=== PATIENT | female | born 1950 | race Caucasian/White ===

== ENCOUNTER 2019-12-06 07:21 | Outpatient (REF) | payer MEDICARE, OTHER, SELFPAY ==
--- NOTE | 2019-12-06 | MM_ITS ---
EXAMINATION: MM SCREENING DIGITAL BREAST TOMOSYNTHESIS, BILATERAL CLINICAL INFORMATION: Screening. Asymptomatic. The lifetime risk of breast cancer based on the Tyrer-Cuzick Model is 3%. COMPARISON: Mammography: 06/09/2018, 05/27/2017, 10/23/2016 TECHNIQUE: Digital breast tomosynthesis is performed in both the craniocaudal and mediolateral oblique views along with computer-aided detection (CAD). Synthesized 2D images are generated from the tomosynthesis. FINDINGS: There are scattered areas of fibroglandular density (ACR BI-RADS breast composition Category b). Parenchymal pattern is similar to prior studies. There is no developing density or interval mass or architectural abnormality. Biopsy clip marker again noted mid 9:00 left breast. There are scattered benign round and coarse calcifications. No significant changes from prior studies. IMPRESSION: No significant changes from prior studies. ASSESSMENT: BI-RADS 2: Benign RECOMMENDATION: Routine annual mammography screening. This patient's information was entered into a reminder system with a target due date for their next mammogram.
== END 2019-12-06 07:22 | disposition home or self-care (01) ==
LOC: HO.MAMMO 07:21
PROVIDERS: Visit Provider Internal Medicine
DX: Z12.31 Encounter for screening mammogram for malignant neoplasm of breast (principal)
CPT/HCPCS: 77063; 77067

== ENCOUNTER 2020-04-25 09:16 | Outpatient (REF) | payer MEDICARE, OTHER, SELFPAY ==
--- NOTE | ~2020-04-25 | MM_ITS ---
EXAMINATION: BONE DENSITOMETRY CLINICAL INDICATION: Osteopenia. COMPARISON: Previous BD dated 06/03/2017 and baseline BD dated 12/08/2008. TECHNIQUE: Using a [employer] DXA System (software version: 13.1) manufactured by [employer], dual-energy x-ray absorptiometry was performed of the lumbar spine and left hip. The images are of good technical quality. Summary results are attached. FINDINGS: AP SPINE L1-L4: Current: BMD 1.089 g/cm2, Z-score 0.1, T-score -0.8, normal, 3.0% decrease from previous, 0.5% increase from baseline (<5% change is not significant). Prior: BMD 1.123 g/cm2. Baseline: BMD 1.084 g/cm2. LEFT FEMUR, NECK: Current: BMD 0.661 g/cm2, Z-score -1.6, T-score -2.7, osteoporosis. Prior: BMD 0.773 g/cm2. Baseline: BMD 0.876 g/cm2. LEFT FEMUR, TOTAL: Current: BMD 0.847 g/cm2, Z-score -0.4, T-score -1.3, osteopenia, 11.7% decrease from previous, 11.8% decrease from baseline (<5% change is not significant). Prior: BMD 0.959 g/cm2. Baseline: BMD 0.960 g/cm2. IDENTIFIED RISK FACTORS: Menopause, history of fracture (adult). HISTORY OF FRACTURE: Ankle. MEDICATIONS: None listed. MM/XR DEXA axial skeleton IMPRESSION: 1. DIAGNOSIS: Osteoporosis based on the lowest T-score value of -2.7 in the femoral neck applying World Health Organization criteria. 2. 10-YEAR FRACTURE RISK PREDICTION, FRAX: Major osteoporotic fracture (clinical spine, forearm, hip or shoulder) 14.6%. Hip fracture 3.8%. 3. Treatment Recommendations: NOF guidelines recommend consideration for treatment in postmenopausal women and men age 50 and older presenting with the following: -A hip or vertebral (clinical or morphometric) fracture. -T-score less than or equal to -2.5 at the femoral neck or spine after appropriate evaluation to exclude secondary causes. -Low bone mass at the hip or spine and a 10-year fracture probability by FRAX of greater than or equal to 3% for hip fracture or greater than or equal to 20% for major osteoporotic fracture based on the [place] adapted WHO algorithm. 4. Other Recommendations: All treatment decisions require clinical judgment and consideration of individual patient factors, including patient preferences, comorbidities, previous drug use, risk factors not captured in the FRAX model (e.g. frailty, falls, vitamin D deficiency, increased bone turnover, interval significant decline in bone density) and possible under or overestimation of fracture risk by FRAX. Additional medical evaluation for secondary cause of low bone mineral density may be appropriate. FUTURE SCAN RECOMMENDATION: People with diagnosed cases of osteoporosis or at high risk for fracture should have regular bone mineral density tests. For patients eligible for Medicare, routine testing is allowed once every 2 years. The testing frequency can be increased to one year for patients who have rapidly progressing disease, those who are receiving or discontinuing medical therapy to restore bone mass, or have additional risk factors.
== END 2020-04-25 09:17 | disposition home or self-care (01) ==
LOC: HO.MAMMO 09:16
PROVIDERS: Visit Provider Internal Medicine
DX: M85.80 Other specified disorders of bone density and structure, unspecified site (principal); Z78.0 Asymptomatic menopausal state
CPT/HCPCS: 77080

== ENCOUNTER 2020-07-18 10:14 | Outpatient (REF) | payer MEDICARE, OTHER, SELFPAY ==
[2020-07-18 11:50] LABS: Alanine Aminotransferase 31 U/L (0-31); Albumin Level 4.3 g/dL (3.5-5.0); Alkaline Phosphatase 96 U/L (39-117); Aspartate Amino Transferase 28 U/L (5-31); Bilirubin Direct 0.3 mg/dL (0.0-0.5); Bilirubin Total 0.8 mg/dL (0.0-1.0); Cholesterol 214 mg/dL; HDL Cholesterol 69 mg/dL; LDL Cholesterol Calculated 114 mg/dl; Total Protein 7.1 g/dL (6.5-8.0); Triglycerides 156 mg/dL
[2020-07-18 12:22] LABS: Vitamin D 25-OH Total 28.9 ng/mL (>30)
[2020-07-18 12:51] LABS: Reflex LDLD? No
== END 2020-07-18 10:15 | disposition home or self-care (01) ==
LOC: HO.LNP 10:14
PROVIDERS: Visit Provider Internal Medicine
DX: E78.00 Pure hypercholesterolemia, unspecified (principal); E55.9 Vitamin D deficiency, unspecified
CPT/HCPCS: 80061; 80076; 82306

== ENCOUNTER 2020-10-16 10:23 | Outpatient (REF) | payer MEDICARE, OTHER, SELFPAY ==
[2020-10-16 11:06] LABS: Alanine Aminotransferase 36 U/L (0-31); Albumin Level 4.4 g/dL (3.5-5.0); Alkaline Phosphatase 91 U/L (39-117); Aspartate Amino Transferase 32 U/L (5-31); Bilirubin Direct 0.3 mg/dL (0.0-0.5); Cholesterol 231 mg/dL; HDL Cholesterol 60 mg/dL; LDL Cholesterol Calculated 105 mg/dl; Total Protein 7.2 g/dL (6.5-8.0); Triglycerides 331 mg/dL
[2020-10-16 11:32] LABS: Reflex LDLD? No
== END 2020-10-16 10:24 | disposition home or self-care (01) ==
LOC: HO.LNP 10:23
PROVIDERS: Visit Provider Internal Medicine
DX: E78.00 Pure hypercholesterolemia, unspecified (principal)
CPT/HCPCS: 80061; 80076

== ENCOUNTER 2021-01-12 07:17 | Outpatient (REF) | payer MEDICARE, OTHER, SELFPAY ==
--- NOTE | ~2021-01-12 | MM_ITS ---
EXAMINATION: MM SCREENING DIGITAL BREAST TOMOSYNTHESIS, BILATERAL CLINICAL INFORMATION: Screening. Asymptomatic. The lifetime risk of breast cancer based on the Tyrer-Cuzick Model is 3%. COMPARISON: Mammography: 12/06/2019, 06/09/2018, 05/27/2017, 10/23/2016 TECHNIQUE: Digital breast tomosynthesis is performed in both the craniocaudal and mediolateral oblique views along with computer-aided detection (CAD). Synthesized 2D images are generated from the tomosynthesis. FINDINGS: There are scattered areas of fibroglandular density (ACR BI-RADS breast composition Category b). There are no significant masses, abnormal calcifications, or other abnormalities. MM/MM tomosynthesis screening BI IMPRESSION: No mammographic evidence of malignancy. ASSESSMENT: BI-RADS 1: Negative RECOMMENDATION: Routine annual mammography screening. This patient's information was entered into a reminder system with a target due date for their next mammogram.
== END 2021-01-12 07:18 | disposition home or self-care (01) ==
LOC: HO.MAMMO 07:17
PROVIDERS: PCP Internal Medicine; Visit Provider Internal Medicine
DX: Z12.31 Encounter for screening mammogram for malignant neoplasm of breast (principal)
CPT/HCPCS: 77063; 77067

== ENCOUNTER 2021-01-25 10:13 | Outpatient (REF) | payer MEDICARE, OTHER, SELFPAY ==
[2021-01-25 11:10] LABS: Alanine Aminotransferase 22 U/L (0-31); Albumin Level 4.3 g/dL (3.5-5.0); Alkaline Phosphatase 86 U/L (39-117); Aspartate Amino Transferase 21 U/L (5-31); Bilirubin Direct 0.2 mg/dL (0.0-0.5); Bilirubin Total 0.6 mg/dL (0.0-1.0); Cholesterol 240 mg/dL; HDL Cholesterol 58 mg/dL; LDL Cholesterol Calculated 137 mg/dl; Total Protein 7.3 g/dL (6.5-8.0); Triglycerides 227 mg/dL
[2021-01-25 11:39] LABS: Reflex LDLD? No
== END 2021-01-25 10:14 | disposition home or self-care (01) ==
LOC: HO.LNP 10:13
PROVIDERS: PCP Internal Medicine; Visit Provider Internal Medicine
DX: E78.00 Pure hypercholesterolemia, unspecified (principal)
CPT/HCPCS: 80061; 80076

== ENCOUNTER 2021-04-17 10:19 | Outpatient (REF) | payer MEDICARE, OTHER, SELFPAY ==
[2021-04-17 10:23] LABS: MANUAL DIFF FLAG NO
[2021-04-17 10:54] LABS: Basophils Percent Auto 0.5 % (0-2); Eosinophils Absolute Auto 0.2 X10*3/uL (0.0-0.4); Eosinophils Percent Auto 2.6 % (0-4); Hematocrit 43.1 % (37.0-47.0); Hemoglobin 13.7 g/dl (12.0-16.0); Imm Gran Abs Auto 0.02 X10*3/uL (0.00-0.03); Imm Gran Pct Auto 0.3 % (0.0-0.4); Lymphocytes Absolute Auto 1.7 X10*3/uL (1.2-4.9); Lymphocytes Percent Auto 26.8 % (20-40); Mean Corpuscular HGB Conc 31.8 g/dl (31.0-35.0); Mean Corpuscular Hemoglobin 29.7 pg (27.0-33.0); Mean Corpuscular Volume 93.5 fL (80.0-98.0); Mean Platelet Volume 9.9 fL (9.4-12.3); Monocytes Absolute Auto 0.4 X10*3/uL (0.1-1.2); Monocytes Percent Auto 6.8 % (2-11); Neutrophils Absolute Auto 3.9 x10*3/uL (2.0-8.3); Platelet Count 304 X10*3/uL (160-400); Red Blood Count 4.61 X10*6/uL (4.20-5.50); Red Cell Distribution Width 13.7 % (11.0-16.0); White Blood Count 6.2 X10*3/uL (4.8-10.8)
[2021-04-17 11:01] LABS: Appearance Urine HAZY; Color Urine YELLOW; Glucose Urine UA NEG (NEG); Leukocyte Esterase Urine 2+ (NEG); Nitrite Urine NEG (NEG); PH 5.5 (5.0-8.0); Urine Blood 1+ (NEG); Urine Ketones NEG (NEG); Urine Protein NEG (NEG-TRACE)
[2021-04-17 11:08] LABS: Alanine Aminotransferase 20 U/L (0-31); Albumin Level 4.1 g/dL (3.5-5.0); Alkaline Phosphatase 82 U/L (39-117); Anion Gap 15 (12-20); Aspartate Amino Transferase 21 U/L (5-31); Bilirubin Total 0.6 mg/dL (0.0-1.0); Blood Urea Nitrogen 15 mg/dL (9-16); Calcium 9.1 mg/dL (8.4-10.2); Carbon Dioxide 27 mmol/L (22-29); Chloride 104 mmol/L (96-108); Cholesterol 214 mg/dL; Estimated Glomerular Filt Rate > 60; Glucose Fasting 120 mg/dL (60-99); HDL Cholesterol 59 mg/dL; LDL Cholesterol Calculated 119 mg/dl; Potassium 4.1 mmol/L (3.3-5.1); Sodium 142 mmol/L (135-145); Triglycerides 182 mg/dL
[2021-04-17 11:22] LABS: RBC Urine 0-2 /HPF (0)
[2021-04-17 11:23] LABS: Bacteria Urine 1+ /LPF; Mucus Urine 1+ /LPF; Squamous Epithelial Cell Urine 2+ /LPF
[2021-04-17 11:31] LABS: Vitamin D 25-OH Total 22.7 ng/mL (>30)
== END 2021-04-17 10:20 | disposition home or self-care (01) ==
LOC: HO.LNP 10:19
PROVIDERS: PCP Internal Medicine; Visit Provider Internal Medicine
DX: E78.00 Pure hypercholesterolemia, unspecified (principal); E55.9 Vitamin D deficiency, unspecified
CPT/HCPCS: 80053; 80061; 81001; 81003; 82306; 85025

== ENCOUNTER 2021-10-26 11:18 | Outpatient (REF) | payer MEDICARE, OTHER, SELFPAY ==
[2021-10-26 11:50] LABS: Alanine Aminotransferase 16 U/L (0-31); Albumin Level 4.2 g/dL (3.5-5.0); Alkaline Phosphatase 74 U/L (39-117); Aspartate Amino Transferase 18 U/L (5-31); Bilirubin Direct 0.3 mg/dL (0.0-0.5); Bilirubin Total 0.9 mg/dL (0.0-1.0); Cholesterol 174 mg/dL; HDL Cholesterol 55 mg/dL; LDL Cholesterol Calculated 88 mg/dl; Total Protein 6.9 g/dL (6.5-8.0); Triglycerides 157 mg/dL
[2021-10-26 12:34] LABS: Reflex LDLD? No
== END 2021-10-26 11:19 | disposition home or self-care (01) ==
LOC: HO.LNP 11:18
PROVIDERS: Visit Provider Internal Medicine
DX: E78.00 Pure hypercholesterolemia, unspecified (principal)
CPT/HCPCS: 80061; 80076

== ENCOUNTER 2022-01-23 08:13 | Outpatient (REF) | payer MEDICARE, OTHER, SELFPAY ==
--- NOTE | ~2022-01-23 | MM_ITS ---
EXAMINATION: MM SCREENING DIGITAL BREAST TOMOSYNTHESIS, BILATERAL CLINICAL INFORMATION: Screening. Asymptomatic. The lifetime risk of breast cancer based on the Tyrer-Cuzick Model is 3%. COMPARISON: Mammography: 01/12/2021, 01/06/2020, 06/09/2018 TECHNIQUE: Digital breast tomosynthesis is performed in both the craniocaudal and mediolateral oblique views along with computer-aided detection (CAD). Synthesized 2D images are generated from the tomosynthesis. FINDINGS: There are scattered areas of fibroglandular density (ACR BI-RADS breast composition Category b). There are no significant masses, abnormal calcifications, or other abnormalities. Parenchymal pattern is similar to prior exams and there is no developing density or architectural abnormality. There is a biopsy clip marker again seen mid 9:00 left breast. MM/MM tomosynthesis screening BI IMPRESSION: No mammographic evidence of malignancy. ASSESSMENT: BI-RADS 1: Negative RECOMMENDATION: Routine annual mammography screening. This patient's information was entered into a reminder system with a target due date for their next mammogram.
== END 2022-01-23 08:14 | disposition home or self-care (01) ==
LOC: HO.MAMMO 08:13
PROVIDERS: PCP Internal Medicine; Visit Provider Internal Medicine
DX: Z12.31 Encounter for screening mammogram for malignant neoplasm of breast (principal)
CPT/HCPCS: 77063; 77067

== ENCOUNTER 2022-04-25 10:46 | Outpatient (REF) | payer MEDICARE, OTHER, SELFPAY ==
[2022-04-25 10:49] LABS: MANUAL DIFF FLAG NO
[2022-04-25 11:08] LABS: Basophils Percent Auto 0.6 % (0-2); Eosinophils Absolute Auto 0.1 X10*3/uL (0.0-0.4); Eosinophils Percent Auto 1.9 % (0-4); Hematocrit 44.8 % (37.0-47.0); Hemoglobin 14.4 g/dl (12.0-16.0); Imm Gran Abs Auto 0.02 X10*3/uL (0.00-0.03); Imm Gran Pct Auto 0.3 % (0.0-0.4); Lymphocytes Absolute Auto 1.5 X10*3/uL (1.2-4.9); Lymphocytes Percent Auto 24.1 % (20-40); Mean Corpuscular HGB Conc 32.1 g/dl (31.0-35.0); Mean Corpuscular Hemoglobin 30.3 pg (27.0-33.0); Mean Corpuscular Volume 94.3 fL (80.0-98.0); Mean Platelet Volume 9.8 fL (9.4-12.3); Monocytes Absolute Auto 0.5 X10*3/uL (0.1-1.2); Monocytes Percent Auto 7.2 % (2-11); Neutrophils Absolute Auto 4.1 x10*3/uL (2.0-8.3); Neutrophils Percent Auto 65.9 % (45-73); Platelet Count 336 X10*3/uL (160-400); Red Blood Count 4.75 X10*6/uL (4.20-5.50); Red Cell Distribution Width 13.3 % (11.0-16.0); White Blood Count 6.2 X10*3/uL (4.8-10.8)
[2022-04-25 11:16] LABS: Appearance Urine Cloudy; Color Urine Yellow; Glucose Urine UA Negative (Negative); Leukocyte Esterase Urine Large (3+) (Negative); Nitrite Urine Negative (Negative); Specific Gravity - Urine 1.015 (1.005-1.025); UMIC TRIGGER UACC YES; Urine Blood Small (1+) (Negative); Urine Ketones Negative (Negative); Urine Protein Negative (Neg-Trace)
[2022-04-25 11:27] LABS: Bacteria Urine 1+ (None Seen); Hyaline Casts Urine 0-2 /LPF (0-2); Squamous Epithelial Cell Urine >20 /HPF (0-2); UACC Culture Trigger YES; WBC Urine >50 /HPF (0-5)
[2022-04-25 11:36] LABS: Alanine Aminotransferase 17 U/L (0-31); Albumin Level 4.1 g/dL (3.5-5.0); Alkaline Phosphatase 74 U/L (39-117); Anion Gap 14 (12-20); Aspartate Amino Transferase 19 U/L (5-31); Blood Urea Nitrogen 10 mg/dL (9-16); Calcium 8.9 mg/dL (8.4-10.2); Carbon Dioxide 28 mmol/L (22-29); Chloride 104 mmol/L (96-108); Cholesterol 281 mg/dL; Estimated Glomerular Filt Rate > 60; Glucose Fasting 102 mg/dL (60-99); HDL Cholesterol 62 mg/dL; LDL Cholesterol Calculated 195 mg/dl; Potassium 3.6 mmol/L (3.3-5.1); Sodium 142 mmol/L (135-145); Total Protein 6.8 g/dL (6.5-8.0); Triglycerides 120 mg/dL
[2022-04-25 11:41] LABS: Vitamin D 25-OH Total 32.2 ng/mL (>30)
== END 2022-04-25 10:47 | disposition home or self-care (01) ==
LOC: HO.LNP 10:46
PROVIDERS: Visit Provider Internal Medicine
DX: E78.00 Pure hypercholesterolemia, unspecified (principal); E55.9 Vitamin D deficiency, unspecified; R82.90 Unspecified abnormal findings in urine
CPT/HCPCS: 80053; 80061; 81001; 81003; 82306; 85025; 87086

== ENCOUNTER 2022-04-30 11:20 | Outpatient (REF) | payer MEDICARE, OTHER, SELFPAY ==
[2022-04-30 11:54] LABS: Appearance Urine Cloudy; Color Urine Yellow; Glucose Urine UA Negative (Negative); Leukocyte Esterase Urine Moderate (2+) (Negative); Nitrite Urine Negative (Negative); PH 5.5 (5.0-9.0); UMIC TRIGGER UACC YES; Urine Blood Small (1+) (Negative); Urine Ketones Negative (Negative); Urine Protein Negative (Neg-Trace)
[2022-04-30 12:10] LABS: Bacteria Urine Trace (None Seen); Hyaline Casts Urine 0-2 /LPF (0-2); UACC Culture Trigger YES
== END 2022-04-30 11:21 | disposition home or self-care (01) ==
LOC: HO.LNP 11:20
PROVIDERS: Visit Provider Internal Medicine
DX: N30.01 Acute cystitis with hematuria (principal)
CPT/HCPCS: 81001; 87086

== ENCOUNTER 2022-05-28 12:33 | Outpatient (REF) | payer MEDICARE, OTHER, SELFPAY ==
[2022-05-28 13:54] LABS: Appearance Urine Cloudy; Color Urine Yellow; Glucose Urine UA Negative (Negative); Leukocyte Esterase Urine Large (3+) (Negative); Nitrite Urine Negative (Negative); Specific Gravity - Urine 1.015 (1.005-1.025); UMIC TRIGGER UA YES; Urine Blood Small (1+) (Negative); Urine Ketones Negative (Negative); Urine Protein Negative (Neg-Trace)
[2022-05-28 14:34] LABS: Bacteria Urine 1+ (None Seen); Hyaline Casts Urine 0-2 /LPF (0-2); RBC Urine 0-2 /HPF (0-2); WBC Urine 21-50 /HPF (0-5)
== END 2022-05-28 12:34 | disposition home or self-care (01) ==
LOC: HO.LNP 12:33
PROVIDERS: Visit Provider Internal Medicine
DX: N30.01 Acute cystitis with hematuria (principal)
CPT/HCPCS: 81001

== ENCOUNTER 2022-07-01 10:46 | Outpatient (REF) | payer MEDICARE, OTHER, SELFPAY ==
[2022-07-01 11:06] LABS: Appearance Urine Cloudy; Color Urine Yellow; Glucose Urine UA Negative (Negative); Leukocyte Esterase Urine Large (3+) (Negative); Nitrite Urine Negative (Negative); PH 5.5 (5.0-9.0); Specific Gravity - Urine 1.015 (1.005-1.025); UMIC TRIGGER UACC YES; Urine Blood Small (1+) (Negative); Urine Ketones Negative (Negative); Urine Protein Negative (Neg-Trace)
[2022-07-01 11:32] LABS: Bacteria Urine 1+ (None Seen); Hyaline Casts Urine 0-2 /LPF (0-2); RBC Urine 0-2 /HPF (0-2); Squamous Epithelial Cell Urine >20 /HPF (0-2); UACC Culture Trigger YES; WBC Urine 21-50 /HPF (0-5)
== END 2022-07-01 10:47 | disposition home or self-care (01) ==
LOC: HO.LNP 10:46
PROVIDERS: Visit Provider Internal Medicine
DX: R31.9 Hematuria, unspecified (principal)
CPT/HCPCS: 81001; 87086

== ENCOUNTER 2022-08-16 11:40 | Outpatient (REF) | payer MEDICARE, OTHER, SELFPAY ==
[2022-08-16 12:09] LABS: Appearance Urine Clear; Color Urine Yellow; Glucose Urine UA Negative (Negative); Leukocyte Esterase Urine Moderate (2+) (Negative); Nitrite Urine Negative (Negative); PH 6.5 (5.0-9.0); Specific Gravity - Urine 1.015 (1.005-1.025); UMIC TRIGGER UACC YES; Urine Blood Trace (Negative); Urine Ketones Negative (Negative); Urine Protein Negative (Neg-Trace)
[2022-08-16 12:28] LABS: Bacteria Urine None Seen (None Seen); Hyaline Casts Urine 0-2 /LPF (0-2); WBC Urine 0-5 /HPF (0-5)
== END 2022-08-16 11:41 | disposition home or self-care (01) ==
LOC: HO.LNP 11:40
PROVIDERS: Visit Provider Internal Medicine
DX: R82.90 Unspecified abnormal findings in urine (principal); Z51.89 Encounter for other specified aftercare
CPT/HCPCS: 81001

== ENCOUNTER 2022-09-05 11:49 | Outpatient (REF) | payer MEDICARE, OTHER, SELFPAY ==
[2022-09-05 13:04] LABS: Appearance Urine Clear; Color Urine Yellow; Glucose Urine UA Negative (Negative); Leukocyte Esterase Urine Negative (Negative); Nitrite Urine Negative (Negative); UMIC TRIGGER UACC YES; Urine Blood Trace (Negative); Urine Ketones Negative (Negative); Urine Protein Negative (Neg-Trace)
[2022-09-05 13:10] LABS: Bacteria Urine None Seen (None Seen); Hyaline Casts Urine 0-2 /LPF (0-2); RBC Urine 0-2 /HPF (0-2); Squamous Epithelial Cell Urine 0-2 /HPF (0-2); WBC Urine 0-5 /HPF (0-5)
== END 2022-09-05 11:50 | disposition home or self-care (01) ==
LOC: HO.LNP 11:49
PROVIDERS: Visit Provider Internal Medicine
DX: R31.9 Hematuria, unspecified (principal)
CPT/HCPCS: 81001

== ENCOUNTER 2022-10-16 12:48 | Outpatient (REF) | payer MEDICARE, OTHER, SELFPAY ==
[2022-10-16 17:11] LABS: Urine Cytology See Pathology rpt
== END 2022-10-16 12:49 | disposition home or self-care (01) ==
LOC: HO.LNP 12:48
PROVIDERS: PCP Internal Medicine; Visit Provider Nurse Practitioner Family
DX: Z13.9 Encounter for screening, unspecified (principal); R31.29 Other microscopic hematuria
CPT/HCPCS: 81003; 88112; 99202

== ENCOUNTER 2022-10-16 12:48 | Outpatient (AMB) | payer MEDICARE, OTHER, SELFPAY ==
--- NOTE | 2022-10-16 13:06 | MHC.OFFVIS ---
Intake Intake Visit Reasons: Hematuria Intake Note: New Patient presents for initial visit hematuria Urology Medications: none Blood Thinner: none Smoker: No, smoked for 30-40yrs Behavior Specialist Required: No Allergies No Known Allergies Allergy (Verified 10/16/22 21:52) Medication List - Last Reconciled 10/16/22 by ABIDA Grace atorvastatin 20 mg PO DAILY HPI HPI Comments History of Present Illness Details Christina Scott is a 71-year-old female patient of Dr. Diane. She has a past medical history of abnormal mammogram, age related osteoporosis, bladder polyp with negative cystoscopy in 2018, De Quervains syndrome, fibrocystic disease of the left breast, hypercholesteremia, and vitamin-D deficiency. She presents to the office today as a new patient for longstanding ongoing history of microscopic hematuria. In discussion with the patient today she reports to be doing and feeling well. She reports following up with Urology for many years as she has had microscopic hematuria for many years now. She reports following up with Dr. Das and Dr. Corley in the past. She discusses having had imaging and in office cystoscopies in the past all that have been within normal limits. She discusses her frustration regarding today's appointment as she feels follow-up is not necessary if workup has been completed in the past and everything has been normal. Discussed at length potential causes for microscopic hematuria. Patient does report a smoking history however quit approximately 30 years ago. However when she did smoke she smoked for approximately 20 years. When asked she is unsure of how many cigarettes or packs of cigarettes she used to smoke. She discusses it varied day to day. Discussed further microscopic hematuria workup with CT urogram as well as in office cystoscopy and urine cytology. However, patient does not wish to have imaging or further workup at this time. She otherwise denies urinary urgency, urinary frequency, incontinence, nocturia, hematuria, dysuria, foul smelling urine, changes to urinary stream, flank pain, fever, and or chills. She is happy with her current voiding parameters. In office urinalysis results reviewed with the patient today. [facility] Medical History Abnormal mammogram Abnormal mammogram of left breast Age related osteoporosis Bladder polyp De Quervain's syndrome (tenosynovitis) Fibrocystic disease of left breast High cholesterol Osteopenia determined by x-ray Other specified menopausal and perimenopausal disorders Vitamin D deficiency Review of Systems Const Reports as per HPI Eyes Reports no additional complaints ENT Reports no additional complaints Card Reports as per HPI Resp Reports no additional complaints GI Reports no additional complaints Reports as per HPI Musc Reports as per HPI Skin/Breast Reports as per HPI Neuro Reports no additional complaints Psych Reports no additional complaints Endo Reports no additional complaints Donald/Lymph Reports no additional complaints Aller/Immun Reports no additional complaints Physical Exam Const General: cooperative, healthy appearing, comfortable, no acute distress, well developed, alert and awake Orientation/consciousness: patient oriented x3 Limitations: no limitations HEENT Head: Yes normal to inspection, Yes normocephalic and Yes atraumatic Ears: hearing grossly normal bilaterally Eyes General: appearance normal, both eyes and all related structures Neck Neck: Yes normal visual inspection and Yes trachea midline Chest Chest palpation & inspection: normal inspection of the chest Resp Effort & Inspection: normal respiratory effort and able to speak in complete sentences Cardio Rate: regular rate GI Inspection: Yes normal to inspection General: Yes no CVA tenderness Back/Spine/Pelvis Back: no CVA tenderness Skin General skin exam: no rashes or lesions noted Neuro General: patient oriented x3 Extrem General: Yes normal to inspection Psych Appearance: grossly normal and well kempt Mental Status: mental status grossly normal Speech and movement: Normal speech and movement present and Clear speech present Affect: normal affect Attitude: cooperative Thought process: Normal thought process present Thought content: Normal thought content present Insight: Fair insight present (Psych) Judgement: Fair judgement present (Psych) Results AMB Urinalysis, Automated UA Leukoctes 15 Serjio/uL Last Edit by Xdyniaronal on 10/16/22 13:43 UA Nitrite Negative Last Edit by [employer] on 10/16/22 13:43 UA Urobilinogen 0.2 mg/dL Last Edit by [employer] on 10/16/22 13:43 UA Protein 0 mg/dL Last Edit by [employer] on 10/16/22 13:43 UA pH 6.0 Last Edit by [employer] on 10/16/22 13:43 UA Blood 25 Isaias/uL Last Edit by [employer] on 10/16/22 13:43 UA Specific Mica 1.015 Last Edit by Bereket Bellamy on 10/16/22 13:43 UA Ketone Negative Last Edit by Bereket Bellamy on 10/16/22 13:43 UA Bilirubin 0 mg/dL Last Edit by Bereket Francoronal on 10/16/22 13:43 UA Glucose 0 mg/dL Last Edit by Bereket Francoronal on 10/16/22 13:43 Results Reviewed Results Reviewed: Laboratory Last Values Urine pH (Auto) 6.0 10/16/22 13:12 Specific Mica (Auto) 1.015 10/16/22 13:12 Urine Protein (Auto) 0 mg/dL 10/16/22 13:12 Glucose (UA)(Auto) 0 mg/dL 10/16/22 13:12 Urine Ketones (Auto) Negative 10/16/22 13:12 Urine Blood (Auto) 25 Isaias/uL 10/16/22 13:12 Urine Nitrite (Auto) Negative 10/16/22 13:12 Urine Bilirubin (Auto) 0 mg/dL 10/16/22 13:12 Urine Urobilinogen (Auto) 0.2 mg/dL 10/16/22 13:12 Leukocyte Esterase (Auto) 15 Serjio/uL 10/16/22 13:12 Assessment & Plan Assessment & Plan (1) Microscopic hematuria: Code(s): R31.29 - Other microscopic hematuria Plan In office urinalysis results reviewed with the patient today; as noted above; will send for urine cytology. Discussed at length potential causes for microscopic hematuria as well as further microscopic hematuria workup Patient declines obtaining imaging and in office cystoscopy for further assessment evaluation. Patient denies any bothersome urinary issues or concerns at this time. Discussed and educated on the importance of drinking plenty of water daily. Patient agreeable to surveillance monitoring of urine cytologies. Follow-up in 1 year; or sooner with any issues, concerns, and or questions. Orders: Orders Urine Cytology Today Z13.9 - Encounter for screening, unspecified AMB Urinalysis Automated Today Z13.9 - Encounter for screening, unspecified Patient Instructions: The patient had an opportunity to ask questions regarding the treatment plan. All questions were answered. Physical exam, labs, and imaging were discussed and reviewed in detail. As well as risks, benefits, and discussion of treatment choices. No major barriers to understanding were identified. The patient expressed understanding and agreement with the above treatment plan. The patient was made aware they should contact our office by phone for worsening of their current condition, the appearance of new symptoms, or with any questions or concerns. Compliance is encouraged with any medications and follow up testing that is ordered. It is a privilege to be allowed the opportunity to participate in? your urological care.? Again, if you have any questions or concerns If you have any questions or concerns please do not hesitate to contact me. The office is [phone]. This note is constructed using voice recognition software. While every effort has been made to ensure accuracy drilling supervisor errors may have been included. Yours sincerely, ABIDA Grace Coding Level of Care Code New Pt Level 3 (60198) Diagnoses Microscopic hematuria R31.29
== END 2022-10-16 13:55 | disposition home or self-care (01) ==
PROVIDERS: PCP Internal Medicine; Visit Provider Nurse Practitioner Family
DX: R31.29 Other microscopic hematuria (principal)
CPT/HCPCS: 99203

== ENCOUNTER 2022-11-01 10:42 | Outpatient (REF) | payer MEDICARE, OTHER, SELFPAY ==
[2022-11-01 11:30] LABS: Cholesterol 172 mg/dL (<200); HDL Cholesterol 66 mg/dL (>40); LDL Cholesterol Calculated 83 mg/dL (<100); Triglycerides 119 mg/dL (<150)
[2022-11-01 11:31] LABS: Alanine Aminotransferase 20 U/L (0-31); Albumin Level 4.1 g/dL (3.5-5.0); Alkaline Phosphatase 79 U/L (39-117); Aspartate Amino Transferase 23 U/L (5-31); Bilirubin Direct 0.3 mg/dL (0.0-0.5); Bilirubin Total 0.8 mg/dL (0.0-1.0); Total Protein 7.1 g/dL (6.5-8.0)
[2022-11-01 12:40] LABS: Reflex LDLD? No
== END 2022-11-01 10:43 | disposition home or self-care (01) ==
LOC: HO.LNP 10:42
PROVIDERS: Visit Provider Internal Medicine
DX: E78.00 Pure hypercholesterolemia, unspecified (principal)
CPT/HCPCS: 80061; 80076

== ENCOUNTER 2023-01-24 08:32 | Outpatient (REF) | payer MEDICARE, OTHER, SELFPAY ==
--- NOTE | ~2023-01-24 | MM_ITS ---
EXAMINATION: MM SCREENING DIGITAL BREAST TOMOSYNTHESIS, BILATERAL CLINICAL INFORMATION: Screening. Asymptomatic. COMPARISON: Mammography: This study is compared with prior exams dating back to 2018. TECHNIQUE: Digital breast tomosynthesis is performed in both the craniocaudal and mediolateral oblique views along with computer-aided detection (CAD). Synthesized 2D images are generated from the tomosynthesis. FINDINGS: There are scattered areas of fibroglandular density (ACR BI-RADS breast composition Category b). There are no significant masses, abnormal calcifications, or other abnormalities. There is a tissue marker in the left breast from prior benign percutaneous biopsy. There are a few, coarse, bilateral, benign calcifications in each breast. MM/MM tomosynthesis screening BI IMPRESSION: No mammographic evidence of malignancy. ASSESSMENT: BI-RADS BI-RADS 2 - Benign Findings RECOMMENDATION: Routine annual mammography screening. 1 year F/U This examination should not preclude the clinical evaluation of a suspicious palpable abnormality. This patient's information was entered into a reminder system with a target due date for their next mammogram.
--- NOTE | ~2023-01-24 | MM_ITS ---
EXAMINATION: BONE DENSITOMETRY CLINICAL INDICATION: Osteopenia. COMPARISON: Previous BD dated 04/25/2020 and baseline BD dated 12/08/2008. TECHNIQUE: Using a [employer] DXA System (software version: 13.1) manufactured by [employer], dual-energy x-ray absorptiometry was performed of the lumbar spine and left hip. The images are of good technical quality. Summary results are attached. FINDINGS: LEFT FEMUR, NECK: Current: BMD 0.814 g/cm2, Z-score -0.2, T-score -1.6, osteopenia. Prior: BMD 0.661 g/cm2. Baseline: BMD 0.876 g/cm2. LEFT FEMUR, TOTAL: Current: BMD 0.934 g/cm2, Z-score 0.6, T-score -0.6, normal, 10.3% increase from previous, 2.7% decrease from baseline (<5% change is not significant). Prior: BMD 0.847 g/cm2. Baseline: BMD 0.960 g/cm2. AP SPINE L1-L4: Current: BMD 1.091 g/cm2, Z-score 0.5, T-score -0.7, normal, 0.2% increase from previous, 0.6% increase from baseline (<5% change is not significant). Prior: BMD 1.089 g/cm2. Baseline: BMD 1.084 g/cm2. IDENTIFIED RISK FACTORS: Menopause, history of fracture (adult). HISTORY OF FRACTURE: Other. MEDICATIONS: Calcium, vitamin D. MM/XR DEXA axial skeleton IMPRESSION: 1. DIAGNOSIS: Osteopenia based on the lowest T-score value of -1.6 in the femoral neck applying World Health Organization criteria. 2. 10-YEAR FRACTURE RISK PREDICTION, FRAX: Major osteoporotic fracture (clinical spine, forearm, hip or shoulder) 15.9%. Hip fracture 2.5%. 3. Treatment Recommendations: NOF guidelines recommend consideration for treatment in postmenopausal women and men age 50 and older presenting with the following: -A hip or vertebral (clinical or morphometric) fracture. -T-score less than or equal to -2.5 at the femoral neck or spine after appropriate evaluation to exclude secondary causes. -Low bone mass at the hip or spine and a 10-year fracture probability by FRAX of greater than or equal to 3% for hip fracture or greater than or equal to 20% for major osteoporotic fracture based on the [place] adapted WHO algorithm. 4. Other Recommendations: All treatment decisions require clinical judgment and consideration of individual patient factors, including patient preferences, comorbidities, previous drug use, risk factors not captured in the FRAX model (e.g. frailty, falls, vitamin D deficiency, increased bone turnover, interval significant decline in bone density) and possible under or overestimation of fracture risk by FRAX. Additional medical evaluation for secondary cause of low bone mineral density may be appropriate. FUTURE SCAN RECOMMENDATION: People with diagnosed cases of osteoporosis or at high risk for fracture should have regular bone mineral density tests. For patients eligible for Medicare, routine testing is allowed once every 2 years. The testing frequency can be increased to one year for patients who have rapidly progressing disease, those who are receiving or discontinuing medical therapy to restore bone mass, or have additional risk factors.
== END 2023-01-24 08:33 | disposition home or self-care (01) ==
LOC: HO.MAMMO 08:32
PROVIDERS: PCP Internal Medicine; Visit Provider Internal Medicine
DX: Z12.31 Encounter for screening mammogram for malignant neoplasm of breast (principal); Z13.820 Encounter for screening for osteoporosis; M85.80 Other specified disorders of bone density and structure, unspecified site; Z78.0 Asymptomatic menopausal state
CPT/HCPCS: 77063; 77067; 77080

== ENCOUNTER → 2023-01-24 10:15 | Outpatient (BNV) | payer MEDICARE, OTHER, SELFPAY | PROVIDERS: PCP Internal Medicine; Visit Provider Radiology Diagnostic Radiology | DX: Z12.31 Encounter for screening mammogram for malignant neoplasm of breast (principal) | CPT/HCPCS: 77063; 77067 ==

== ENCOUNTER 2023-04-28 11:16 | Outpatient (REF) | payer MEDICARE, OTHER, SELFPAY ==
[2023-04-28 11:19] LABS: MANUAL DIFF FLAG NO
[2023-04-28 11:41] LABS: Basophils Percent Auto 0.6 % (0-2); Eosinophils Absolute Auto 0.2 X10*3/uL (0.0-0.4); Eosinophils Percent Auto 2.4 % (0-4); Hematocrit 42.4 % (37.0-47.0); Hemoglobin 13.8 g/dl (12.0-16.0); Imm Gran Abs Auto 0.02 X10*3/uL (0.00-0.03); Imm Gran Pct Auto 0.3 % (0.0-0.4); Lymphocytes Absolute Auto 1.3 X10*3/uL (1.2-4.9); Lymphocytes Percent Auto 21.5 % (20-40); Mean Corpuscular HGB Conc 32.5 g/dl (31.0-35.0); Mean Corpuscular Hemoglobin 30.1 pg (27.0-33.0); Mean Corpuscular Volume 92.4 fL (80.0-98.0); Mean Platelet Volume 9.5 fL (9.4-12.3); Monocytes Absolute Auto 0.5 X10*3/uL (0.1-1.2); Monocytes Percent Auto 7.9 % (2-11); Neutrophils Absolute Auto 4.2 x10*3/uL (2.0-8.3); Neutrophils Percent Auto 67.3 % (45-73); Platelet Count 315 X10*3/uL (160-400); Red Blood Count 4.59 X10*6/uL (4.20-5.50); Red Cell Distribution Width 13.7 % (11.0-16.0); White Blood Count 6.2 X10*3/uL (4.8-10.8)
[2023-04-28 11:59] LABS: Alanine Aminotransferase 18 U/L (0-31); Alkaline Phosphatase 73 U/L (39-117); Anion Gap 14 (12-20); Aspartate Amino Transferase 22 U/L (5-31); Bilirubin Total 0.6 mg/dL (0.0-1.0); Blood Urea Nitrogen 13 mg/dL (9-16); Calcium 9.1 mg/dL (8.4-10.2); Carbon Dioxide 27 mmol/L (22-29); Chloride 106 mmol/L (96-108); Cholesterol 171 mg/dL (<200); Estimated Glomerular Filt Rate > 60; Glucose Fasting 101 mg/dL (60-99); HDL Cholesterol 68 mg/dL (>40); LDL Cholesterol Calculated 89 mg/dL (<100); Potassium 3.8 mmol/L (3.3-5.1); Sodium 143 mmol/L (135-145); Total Protein 7.1 g/dL (6.5-8.0); Triglycerides 72 mg/dL (<150)
[2023-04-28 12:14] LABS: Vitamin D 25-OH Total 47.7 ng/mL (>30)
== END 2023-04-28 11:17 | disposition home or self-care (01) ==
LOC: HO.LNP 11:16
PROVIDERS: Visit Provider Internal Medicine
DX: E78.00 Pure hypercholesterolemia, unspecified (principal); E55.9 Vitamin D deficiency, unspecified
CPT/HCPCS: 80053; 80061; 82306; 85025

== ENCOUNTER 2023-05-02 11:51 | Outpatient (REF) | payer MEDICARE, OTHER, SELFPAY ==
[2023-05-02 12:29] LABS: Appearance Urine Clear; Color Urine Yellow; Glucose Urine UA Negative (Negative); Leukocyte Esterase Urine Trace (Negative); Nitrite Urine Negative (Negative); UMIC TRIGGER UACC YES; Urine Blood Negative (Negative); Urine Ketones Negative (Negative); Urine Protein Negative (Neg-Trace)
[2023-05-02 12:35] LABS: Bacteria Urine None Seen (None Seen); Hyaline Casts Urine 0-2 /LPF (0-2); RBC Urine 0-2 /HPF (0-2); Squamous Epithelial Cell Urine 0-2 /HPF (0-2); WBC Urine 0-5 /HPF (0-5)
== END 2023-05-02 11:52 | disposition home or self-care (01) ==
LOC: HO.LNP 11:51
PROVIDERS: Visit Provider Internal Medicine
DX: E78.00 Pure hypercholesterolemia, unspecified (principal); M85.80 Other specified disorders of bone density and structure, unspecified site; E55.9 Vitamin D deficiency, unspecified
CPT/HCPCS: 81001

== ENCOUNTER 2023-10-17 09:14 | Outpatient (AMB) | payer MEDICARE, OTHER, SELFPAY ==
--- NOTE | 2023-10-17 09:25 | A.OFFVIS_ITS ---
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 Diane. She has a past medical history of abnormal mammogram, age related osteoporosis, bladder polyp with negative cystoscopy in 2018, De Quervains syndrome, fibrocystic disease of the left breast, hypercholesteremia, and vitamin-D deficiency. She presents to the office today for follow-up of her microscopic hematuria. In discussion with the patient today with the patient today she reports to be doing and feeling since her last office visit here one year ago. She denies any bothersome urinary issues or concerns. Previous urine cytology results reviewed with the patient today 10/16 Negative for high-grade urothelial carcinoma. She discusses her longstanding history of microscopic hematuria for many years now and her previous history with workups that all have been within normal limits. She reports having had workups in the past as she previously smoked however has been smoke free for over 30 years now. We discussed reasons for blood in the urine may include but are not limited to kidney stones, cancer in the urinary tract, kidney stone disease or inflammatory conditions of the urinary tract. I have discussed workup to include cystoscopy evaluation. However, patient does not wish to have imaging or further workup at this time. She otherwise denies urinary urgency, urinary frequency, incontinence, nocturia, hematuria, dysuria, foul smelling urine, changes to urinary stream, flank pain, fever, and or chills. She is happy with her current voiding parameters. In office urinalysis results reviewed with the patient today. [facility] Medical History Bladder polyp Abnormal mammogram of left breast Abnormal mammogram Fibrocystic disease of left breast Age related osteoporosis Osteopenia determined by x-ray High cholesterol De Quervain's syndrome (tenosynovitis) Other specified menopausal and perimenopausal disorders Vitamin D deficiency Review of Systems Const Reports as per HPI Eyes Reports no additional complaints ENT Reports no additional complaints Card Reports as per HPI Resp Reports no additional complaints GI Reports no additional complaints Reports as per HPI Musc Reports as per HPI Skin/Breast Reports as per HPI Neuro Reports no additional complaints Psych Reports no additional complaints Endo Reports no additional complaints Donald/Lymph Reports no additional complaints Aller/Immun Reports no additional complaints Physical Exam Const General: cooperative, healthy appearing, comfortable, no acute distress, well developed, alert and awake Orientation/consciousness: patient oriented x3 Limitations: no limitations HEENT Head: Yes normal to inspection, Yes normocephalic and Yes atraumatic Ears: hearing grossly normal bilaterally Eyes General: appearance normal, both eyes and all related structures Neck Neck: Yes normal visual inspection and Yes trachea midline Chest Chest palpation & inspection: normal inspection of the chest Resp Effort & Inspection: normal respiratory effort and able to speak in complete sentences Cardio Rate: regular rate GI Inspection: Yes normal to inspection General: Yes no CVA tenderness Back/Spine/Pelvis Back: no CVA tenderness Skin General skin exam: no rashes or lesions noted Neuro General: patient oriented x3 Extrem General: Yes normal to inspection Psych Appearance: grossly normal and well kempt Mental Status: mental status grossly normal Speech and movement: Normal speech and movement present and Clear speech present Affect: normal affect Attitude: cooperative Thought process: Normal thought process present Thought content: Normal thought content present Insight: Fair insight present (Psych) Judgement: Fair judgement present (Psych) Results AMB Urinalysis, Automated UA Leukoctes 125 Serjio/uL Last Edit by [employer] on 10/17/23 09:39 UA Nitrite Last Edit by [employer] on 10/17/23 09:39 UA Urobilinogen 0.2 mg/dL Last Edit by [employer] on 10/17/23 09:39 UA Protein 0 mg/dL Last Edit by [employer] on 10/17/23 09:39 UA pH 6.0 Last Edit by [employer] on 10/17/23 09:39 UA Blood 80 Isaias/uL Last Edit by [employer] on 10/17/23 09:39 UA Specific [place] 1.020 Last Edit by [employer] on 10/17/23 09:39 UA Ketone Negative Last Edit by [employer] on 10/17/23 09:39 UA Bilirubin 0 mg/dL Last Edit by [employer] on 10/17/23 09:39 UA Glucose 0 mg/dL Last Edit by Bereket Bellamy on 10/17/23 09:39 Results Reviewed Results Reviewed: Laboratory Last Values Urine pH (Auto) 6.0 10/17/23 09:32 Specific [place] (Auto) 1.020 10/17/23 09:32 Urine Protein (Auto) 0 mg/dL 10/17/23 09:32 Glucose (UA)(Auto) 0 mg/dL 10/17/23 09:32 Urine Ketones (Auto) Negative 10/17/23 09:32 Urine Blood (Auto) 80 Isaias/uL 10/17/23 09:32 Urine Bilirubin (Auto) 0 mg/dL 10/17/23 09:32 Urine Urobilinogen (Auto) 0.2 mg/dL 10/17/23 09:32 Leukocyte Esterase (Auto) 125 Serjio/uL 10/17/23 09:32 Assessment & Plan Assessment & Plan (1) Microscopic hematuria: Code(s): R31.29 - Other microscopic hematuria Category: Medical Plan In office urinalysis results reviewed with the patient today; as noted above; will send for urine cytology. Discussed at length potential causes for microscopic hematuria as well as further microscopic hematuria workup Patient declines obtaining imaging and in office cystoscopy for further assessment evaluation. Patient denies any bothersome urinary issues or concerns at this time. Discussed and educated on the importance of drinking plenty of water daily. Prescription provided for Estrace cream Patient agreeable to surveillance monitoring of urine cytologies. Follow-up in 1 year; or sooner with any issues, concerns, and or questions. Orders: Orders AMB Urinalysis Automated Today Z13.9 - Encounter for screening, unspecified Urine Cytology Today R31.29 - Other microscopic hematuria Medications: New estradiol 0.01%(0.1mg/gram) (Estrace) Apply pea sized amount to urethra 3 times per week 1 g vaginal 3XW 90 days 42.5 grams 3RF Patient Instructions: The patient had an opportunity to ask questions regarding the treatment plan. All questions were answered. Physical exam, labs, and imaging were discussed and reviewed in detail. As well as risks, benefits, and discussion of treatment choices. No major barriers to understanding were identified. The patient expressed understanding and agreement with the above treatment plan. The patient was made aware they should contact our office by phone for worsening of their current condition, the appearance of new symptoms, or with any questions or concerns. Compliance is encouraged with any medications and follow up testing that is ordered. It is a privilege to be allowed the opportunity to participate in? your urological care.? Again, if you have any questions or concerns If you have any questions or concerns please do not hesitate to contact me. The office is [phone]. This note is constructed using voice recognition software. While every effort has been made to ensure accuracy aluminum boat inspector errors may have been included. Yours sincerely, ABIDA Grace Coding Level of Care Code Est Pt Level 3 (49943) Complex EM visit Add On G2211 Diagnoses Microscopic hematuria R31.29
== END 2023-10-17 10:06 | disposition home or self-care (01) ==
PROVIDERS: PCP Internal Medicine; Visit Provider Nurse Practitioner Family
DX: Z13.9 Encounter for screening, unspecified (principal); R31.29 Other microscopic hematuria
CPT/HCPCS: 99213; G2211

== ENCOUNTER 2023-10-17 09:14 | Outpatient (REF) | payer MEDICARE, OTHER, SELFPAY ==
[2023-10-17 17:24] LABS: Urine Cytology See Pathology rpt
== END 2023-10-17 09:15 | disposition home or self-care (01) ==
LOC: HO.LNP 09:14
PROVIDERS: PCP Internal Medicine; Visit Provider Nurse Practitioner Family
DX: R31.29 Other microscopic hematuria (principal)
CPT/HCPCS: 81003; 88112; 99212

== ENCOUNTER 2023-11-11 11:23 | Outpatient (REF) | payer MEDICARE, OTHER, SELFPAY ==
[2023-11-11 11:47] LABS: Alanine Aminotransferase 18 U/L (0-31); Alkaline Phosphatase 69 U/L (39-117); Aspartate Amino Transferase 21 U/L (5-31); Bilirubin Direct 0.3 mg/dL (0.0-0.5); Bilirubin Total 0.8 mg/dL (0.0-1.0); Cholesterol 168 mg/dL (<200); HDL Cholesterol 73 mg/dL (>40); LDL Cholesterol Calculated 72 mg/dL (<100); Total Protein 6.8 g/dL (6.5-8.0); Triglycerides 118 mg/dL (<150)
[2023-11-11 14:27] LABS: Reflex LDLD? No
== END 2023-11-11 11:24 | disposition home or self-care (01) ==
LOC: HO.LNP 11:23
PROVIDERS: Visit Provider Internal Medicine
DX: E78.00 Pure hypercholesterolemia, unspecified (principal)
CPT/HCPCS: 80061; 80076

== ENCOUNTER 2024-01-26 08:33 | Outpatient (REF) | payer MEDICARE, OTHER, SELFPAY ==
--- NOTE | ~2024-01-26 | MM_ITS ---
EXAMINATION: MM SCREENING DIGITAL BREAST TOMOSYNTHESIS, BILATERAL CLINICAL INFORMATION: Screening. Asymptomatic. COMPARISON: Mammography: Comparison is made with available priors TECHNIQUE: Digital breast mammography with tomosynthesis is performed in both the craniocaudal and mediolateral oblique views along with computer-aided detection (CAD). FINDINGS: There are scattered areas of fibroglandular density (ACR BI-RADS breast composition Category b). Left marker clip. There are no significant masses, abnormal calcifications, or other abnormalities. MM/MM tomosynthesis screening BI IMPRESSION: No mammographic evidence of malignancy. ASSESSMENT: BI-RADS BI-RADS 2 - Benign Findings RECOMMENDATION: Routine annual mammography screening. 1 year F/U This examination should not preclude the clinical evaluation of a suspicious palpable abnormality. This patient's information was entered into a reminder system with a target due date for their next mammogram. Electronically signed by: Manuela Roth DO 01/30/2024 10:48 AM [facility]ABLE
== END 2024-01-26 08:34 | disposition home or self-care (01) ==
LOC: HO.MAMMO 08:33
PROVIDERS: PCP Internal Medicine; Visit Provider Internal Medicine
DX: Z12.31 Encounter for screening mammogram for malignant neoplasm of breast (principal)
CPT/HCPCS: 77063; 77067

== ENCOUNTER → 2024-01-26 08:45 | Outpatient (BNV) | payer MEDICARE, OTHER, SELFPAY | PROVIDERS: PCP Internal Medicine; Visit Provider Internal Medicine | DX: Z12.31 Encounter for screening mammogram for malignant neoplasm of breast (principal) | CPT/HCPCS: 77063; 77067 ==

== ENCOUNTER 2024-04-26 07:00 | Outpatient (REF) | payer MEDICARE, OTHER, SELFPAY ==
[2024-04-26 11:07] LABS: MANUAL DIFF FLAG NO
[2024-04-26 11:18] LABS: Basophils Percent Auto 0.6 % (0-2); Eosinophils Absolute Auto 0.2 X10*3/uL (0.0-0.4); Eosinophils Percent Auto 2.9 % (0-4); Hematocrit 42.3 % (37.0-47.0); Hemoglobin 13.6 g/dl (12.0-16.0); Imm Gran Abs Auto 0.01 X10*3/uL (0.00-0.03); Imm Gran Pct Auto 0.2 % (0.0-0.4); Lymphocytes Absolute Auto 1.3 X10*3/uL (1.2-4.9); Lymphocytes Percent Auto 25.7 % (20-40); Mean Corpuscular HGB Conc 32.2 g/dl (31.0-35.0); Mean Corpuscular Hemoglobin 29.4 pg (27.0-33.0); Mean Corpuscular Volume 91.4 fL (80.0-98.0); Mean Platelet Volume 9.5 fL (9.4-12.3); Monocytes Absolute Auto 0.4 X10*3/uL (0.1-1.2); Monocytes Percent Auto 7.7 % (2-11); Neutrophils Absolute Auto 3.3 x10*3/uL (2.0-8.3); Neutrophils Percent Auto 62.9 % (45-73); Platelet Count 314 X10*3/uL (160-400); Red Blood Count 4.63 X10*6/uL (4.20-5.50); Red Cell Distribution Width 13.5 % (11.0-16.0); White Blood Count 5.2 X10*3/uL (4.8-10.8)
[2024-04-26 11:19] LABS: Appearance Urine Clear; Color Urine Yellow; Glucose Urine UA Negative (Negative); Leukocyte Esterase Urine Small (1+) (Negative); Nitrite Urine Negative (Negative); PH 5.5 (5.0-9.0); Specific Gravity - Urine 1.015 (1.005-1.025); UMIC TRIGGER UACC YES; Urine Blood Small (1+) (Negative); Urine Ketones Negative (Negative); Urine Protein Negative (Neg-Trace)
[2024-04-26 11:29] LABS: Bacteria Urine None Seen (None Seen); Hyaline Casts Urine 0-2 /LPF (0-2); RBC Urine 0-2 /HPF (0-2); UACC Culture Trigger YES
[2024-04-26 11:45] LABS: Alanine Aminotransferase 17 U/L (0-31); Alkaline Phosphatase 75 U/L (39-117); Anion Gap 12 (12-20); Aspartate Amino Transferase 26 U/L (5-31); Bilirubin Total 0.7 mg/dL (0.0-1.0); Blood Urea Nitrogen 12 mg/dL (9-16); Carbon Dioxide 29 mmol/L (22-29); Chloride 107 mmol/L (96-108); Cholesterol 167 mg/dL (<200); Estimated Glomerular Filt Rate > 60; Glucose Fasting 107 mg/dL (60-99); HDL Cholesterol 71 mg/dL (>40); LDL Cholesterol Calculated 77 mg/dL (<100); Potassium 3.8 mmol/L (3.3-5.1); Sodium 144 mmol/L (135-145); Total Protein 7.4 g/dL (6.5-8.0); Triglycerides 95 mg/dL (<150)
[2024-04-26 11:49] LABS: Vitamin D 25-OH Total 48.1 ng/mL (>30)
--- OUTSIDE RECORDS SUMMARY | 2024-04-26 13:14 | XMS_ITS ---
Author Organization Adair Diane MD Address [address] [place], [place] [phone] Care Team Providers Care Speech Instructor Name Role Phone Adair Diane Primary Care Provider Results Component Value Reference Range Notes UA ClnCatch+Micro w/rflx Cul t (Not yet reviewed by provider) Interpretation: Performing Lab:[facility], [address] [place] [phone] Notes/Report: [id number] 0700 Urine, Clean Catch Color Urine Yellow Appearance Urine Clear PH 5.5 5.0-9.0 Glucose Urine UA Negative Negative mg/dL Urine Blood Small (1+) Negative Specific [place] - Urine 1.015 1.005-1.025 Urine Protein Negative Neg-Trace mg/dL Urine Ketones Negative Negative mg/dL Nitrite Urine Negative Negative Leukocyte Esterase Urine Small (1+) Negative RBC Urine 0-2 0-2 /HPF WBC Urine 6-10 0-5 /HPF Squamous Epithelial Cell Urine 3-5 0-2 /HPF Bacteria Urine None Seen None Seen Hyaline Casts Urine 0-2 0-2 /LPF Complete Blood Count Auto Di ff Reviewed date:04/26/2024 12:32:24 PM Interpretation: Performing Lab:[facility], [address] [place] [phone] Notes/Report: White Blood Count 5.2 4.8-10.8 X10*3/uL [...] NRBC Abs Auto 0.000 0.0-0.012 X10*3/uL Comprehensive [place]. Panel Fa st Reviewed date:04/26/2024 12:32:08 PM Interpretation: Performing Lab:[facility], [address] [place] [phone] Notes/Report: Sodium 144 135-145 mmol/L Potassium 3.8 [...] Panel Reviewed date:04/26/2024 12:32:32 PM Interpretation: Performing Lab:[address] [phone] Notes/Report: Triglycerides 95 <150 mg/dL Desirable Triglyceride: [...] Total Reviewed date:04/26/2024 12:32:47 PM Interpretation: Performing Lab:[address] [phone] Notes/Report: Vitamin D 25-OH Total 48.1 >30 [...] confirmed with another method such as LC-MS/MS. REASON FOR VISIT FASTING LABS Encounters Encounter Location Date Provider Diagnosis Adair Diane MD [address] [place], [place] [phone] 04/26/2024 Adair Diane High cholesterol E78.00 and Vitamin D deficiency E55.9 Assessments Encounter Date Diagnosis (ICD Code) Assessment Notes Treatment Notes Treatment Clinical Notes Section Notes 04/26/2024 High cholesterol (ICD-10 - E78.00) 04/26/2024 Vitamin D deficiency (ICD-10 - E55.9) Plan Of Treatment Pending Test Test Name Order Date UA ClnCatch+Micro w/rflx Cult 04/26/2024 Next Appt Details Provider Name:Adair Adams ier, 05/04/2024 10:00:00 AM, [address] [place] [address], [address], [place], [place], [phone], Progress Notes * WILLIAM SEGURAOB: (73 yo F)Acc No.[id number]:04/26/2024 Progress Note Patient:?SHADIRoyaALESHIAERIKA Provider:?Adair Diane MD :1950???Age:73 Y???Sex:Female D ate:04/26/2024 Address:[address] [place], [place] [phone] Subjective: * Chief Complaints: * ???1. FASTING LABS. * Medical History:? Objective: * Vitals:? Assessment: * Assessment: 1.?High cholesterol - E78.00 (Primary)???2.?Vitamin D deficiency - E55.9??? Plan: * Treatment: 2.?Vitamin D deficiency?LAB: UA ClnCatch+Micro w/rflx Cult (Collection Date & Time - 04/26/2024 07:00 AM) ?LAB: Complete Blood Count Auto Diff (Collection Date & Time - 04/26/2024 07:00 AM) ?LAB: Comprehensive [place]. Panel Fast (Collection Date & Time - 04/26/2024 07:00 AM) ?LAB: Lipid Panel (Collection Date & Time - 04/26/2024 07:00 AM) ?LAB: Vitamin D 25-OH Total (Collection Date & Time - 04/26/2024 07:00 AM) * Procedure Codes:?21883 VENIP UNCT, ROUTINE* * * The named appointment provid er may or may not be the originator of this progress note, and it is not deemed complete until electronically signed by the appointment provider. Sign off status: Pending * Provider:?Adair Diane MD Date:?0 04/26/2024 Generated for Yusra preston/Jamison/Sahilitting on:?04/26/2024 01:14 PM EST
--- OUTSIDE RECORDS SUMMARY | 2024-04-26 13:14 | XMS_ITS ---
Author Organization Adair Diane MD Address [address] [place], [place] [phone] Care Team Providers Care Belt Cleaner Name Role Phone Adair Diane Primary Care Provider Results Component Value Reference Range Notes Liver Panel Reviewed date:11/11/2023 04:42:18 PM Interpretation: Performing Lab:[facility], [address] [place] [phone] Notes/Report: Bilirubin Total 0.8 0.0-1.0 mg/dL Bilirubin Direct 0.3 0.0-0.5 mg/dL Aspartate Amino Transferase 21 5-31 U/L Alanine Aminotransferase 18 0-31 U/L Total Protein 6.8 6.5-8.0 g/dL Albumin Level 4.0 3.5-5.0 g/dL Alkaline Phosphatase 69 39-117 U/L Lipid Panel with Reflex Reviewed date:11/11/2023 04:42:04 PM Interpretation: Performing Lab:[facility], [address] [place] [phone] Notes/Report: Triglycerides 118 <150 mg/dL Desirable Triglyceride: [...] Location Date Provider Diagnosis Adair Diane MD [address] [place] [address] [address] [place], [place] [phone] 11/11/2023 Adair Diane High cholesterol E78.00 and Encounter for immunization Z23 Assessments Encounter Date Diagnosis (ICD Code) Assessment Notes Treatment Notes Treatment Clinical Notes Section Notes 11/11/2023 High cholesterol (ICD-10 - E78.00) 11/11/2023 Encounter for immunization (ICD-10 - Z23) Plan Of Treatment Next Appt Details Provider Name:Adair Adams ier, 05/04/2024 10:00:00 AM, [address] [place] [address], [address], [place], [place], [phone], Progress Notes * SHADIA SEGURAEDOB: 2 (73 yo F)Acc No.[id number]:11/11/2023 Progress Note Patient:?IMELDA ERIKA Provider:?Adair Diane MD :1950???Age:72 Y???Sex:Female D ate:11/11/2023 Address:[address] [place], [place] [phone] Subjective: * Chief Complaints: * ???1. FASTING LIPIDS. * Medical History:? Objective: * Vitals:? Assessment: * Assessment: 1.?Encounter for immunizatio n - Z23 (Primary)???2.?High cholesterol - E78.00??? Plan: * Treatment: * Immunizations:? Influenza High Dose : 0.5 mL (Dose No:1) (Route: Intramuscular) given by Patricia Khalil , Office Staff on Left Deltoid * Procedure Codes:?83805 FLU V ACC PRSV FREE INC ANTIG, 41851 VENIPUNCT, ROUTINE*, G0008 ADMN FLU VAC NO FEE SCHED SAME DAY * * The named appointment provid er may or may not be the originator of this progress note, and it is not deemed complete until electronically signed by the appointment provider. Sign off status: Pending * Provider:?Adair Diane MD Date:?0 11/11/2023 Generated for Yusra preston/Jamison/Harris on:?04/26/2024 01:13 PM EST
--- OUTSIDE RECORDS SUMMARY | 2024-04-26 13:14 | XMS_ITS ---
Author Organization Adair Diane MD Address [address] [place] [phone] Care Team Providers Care Insurance Agents Supervisor Name Role Phone Adair Diane Primary Care Provider Allergies No Known Allergies REASON FOR VISIT 6 MO F/U Medications Medication SIG (Take, Route, Frequency, Duration) Notes Start Date End Date Status Nystatin 750035 UNIT/GM 1 application to affected area Externally [...] Adair Diane MD [address] [place] [phone] 11/20/2023 Adair Diane Hypercholesteremia E 78.00 Assessments [...] Provider Name:Adair Adams ier, 05/04/2024 10:00:00 AM, [address] [place] [address], [address], [place], [place], [phone], Progress Notes * SHADIA SEGURASANTOSHOB: (73 yo F)Acc No.[id number]:11/20/2023 Progress Notes Patient:?ERIKA SEGURA Provider:?Adair Diane MD :1950???Age:73 Y???Sex:Female D ate:11/20/2023 Address:[address] [place], [place] [phone] Subjective: * Chief Complaints: * ???6 MO F/U * HPI: ???Symptom(s):? patient is a 73 yo female here for 6 month follow up visit. * ROS:?General/Constitutional:?Denies?Chills.?Denies?Fatigue.?Denies?Fever.?Denies?Headache.?ENT:?Patient denies?decreased sense of smell , any loss of taste , sore throat.?Denies?Sore throat.?Respiratory:?Denies?Cough.?Denies?Shortness of breath at rest.?Denies?Shortness of breath with exertion.?Cardiovascular:?Denies?Chest pain at rest.?Denies?Chest pain with exertion.?Denies?Dizziness.?Denies?Palpitations.?Denies?Shortness of breath.?Gastrointestinal:?Denies?Diarrhea.?Denies?Nausea.?Musculoskeletal:?Patient denies?muscle aches.?Peripheral Vascular:?Patient denies?red and blue toes.? * Medical History:? * Surgical History:? * Hospitalization/Major Diagno stic Procedure:? * Medications:?TakingVitamin D (Cholecalciferol) 25 MCG (1000 UT) Capsule 1 capsule Orally Once a dayAtorvastatin Calcium 20 MG Tablet 1 tablet Orally Once a dayTaking Vitamin D (Cholecalciferol) 25 MCG (1000 UT) Capsule 1 capsule Orally Once a dayTaking Atorvastatin Calcium 20 MG Tablet 1 tablet Orally Once a dayNot-Taking/PRNOmeprazole 20 MG Capsule Delayed Release 1 capsule 30 minutes before morning meal Orally Once a dayNystatin 054854 UNIT/GM Cream 1 application to affected area Externally Twice a dayMedication List reviewed and reconciled with the patientNot-Taking/PRN Omeprazole 20 MG Capsule Delayed Release 1 capsule 30 minutes before morning meal Orally Once a dayNot-Taking/PRN Nystatin 661073 UNIT/GM Cream 1 application to affected area Externally Twice a dayMedication List reviewed and reconciled with the patient * Allergies:?N.K.D.A.yes[Aller gies Verified] Objective: * Vitals:?Ht: 61.5, Wt:175, BM I:32.53, BP:130/68. * ???Past Orders: ???Lab:Liver Panel (Order Da te - 11/11/2023) (Collection Date - 11/11/2023) ? Value Reference Range ?Bilirubin Total 0.8 0.0- 1.0 - mg/dL ?Bilirubin Direct 0.3 0.0 -0.5 - mg/dL ?Aspartate Amino Transferase 21 5-31 - U/L ?Alanine Aminotransferase 18 0-31 - U/L ?Total Protein 6.8 6.5-8. 0 - g/dL ?Albumin Level 4.0 3.5-5. 0 - g/dL ?Alkaline Phosphatase 69 39-117 - U/L ???Lab:Lipid Panel with Refl ex (Order Date - 11/11/2023) (Collection Date - 11/11/2023) ? Value Reference Range ?Triglycerides 118 <150 - mg/dL ?Cholesterol 168 <200 - m g/dL ?LDL Cholesterol Calculated 72 <100 - mg/dL ?HDL Cholesterol 73 >40 - mg/dL * Examination: ???General Examination: ?GENERAL APPEARANCE:? alert, well hydrated, in no distress .?HEAD:? normocephalic.?SKIN:? good turgor.?HEART:? no murmurs, rubs, gallops, regular rate and rhythm.?LUNGS:? no wheezes, rales, rhonchi, good air movement, clear to auscultation bilaterally.? Assessment: * Assessment: 1.?Hypercholesteremia - E78. 00 (Primary)? Plan: * Treatment: * Procedure Codes:? * * Sign off status: Completed true * Provider:?Adair Diane MD Date:?0 11/20/2023 Generated for Yusra preston/Jamison/eTransmitting on:?04/26/2024 01:13 PM EST History and Physical Notes * HPI (History [...]
--- OUTSIDE RECORDS SUMMARY | 2024-04-26 13:14 | XMS_ITS | Patient Health Record ---
Author Organization Adair Diane MD Address [address] [place], [place] [id number] Care Team Providers [employer] Analyst Name Role Phone Adair Diane Primary Care Provider [phone] Allergies No Known Allergies Results Component Value Reference Range Notes Complete Blood Count Auto Di ff Reviewed date:04/28/2023 12:31:17 PM Interpretation: Performing Lab:[facility], [address] [place] [phone] Notes/Report: White Blood Count 6.2 4.8-10.8 X10*3/uL Red Blood Count 4.59 4.20-5.50 X10*6/uL Hemoglobin 13.8 12.0-16.0 g/dl Hematocrit 42.4 37.0-47.0 % Mean Corpuscular Volume 92.4 80.0-98.0 fL Mean Corpuscular Hemoglobin 30.1 27.0-33.0 pg Mean Corpuscular HGB Conc 32.5 31.0-35.0 g/dl Red Cell Distribution Width 13.7 11.0-16.0 % Platelet Count 315 160-400 X10*3/uL Mean Platelet Volume 9.5 9.4-12.3 fL Neutrophils Percent Auto 67.3 45-73 % Imm Gran Pct Auto 0.3 0.0-0.4 % Lymphocytes Percent Auto 21.5 20-40 % Monocytes Percent Auto 7.9 2-11 % Eosinophils Percent Auto 2.4 0-4 % Basophils Percent Auto 0.6 0-2 % NRBC Pct Auto 0.0 0.0-0.2 /100WBC Neutrophils Absolute Auto 4.2 2.0-8.3 x10*3/uL Imm Gran Abs Auto 0.02 0.00-0.03 X10*3/uL Lymphocytes Absolute Auto 1.3 1.2-4.9 X10*3/uL Monocytes Absolute Auto 0.5 0.1-1.2 X10*3/uL Eosinophils Absolute Auto 0.2 0.0-0.4 X10*3/uL Basophils Absolute Auto 0.0 0.0-0.2 X10*3/uL NRBC Abs Auto 0.000 0.0-0.012 X10*3/uL Comprehensive [place]. Panel Fa st Reviewed date:04/28/2023 04:50:14 PM Interpretation: Performing Lab:[facility], [address] [place] [phone] Notes/Report: Sodium 143 135-145 mmol/L Potassium 3.8 3.3-5.1 mmol/L Chloride 106 96-108 mmol/L Carbon Dioxide 27 22-29 mmol/L Anion Gap 14 12-20 Blood Urea Nitrogen 13 9-16 mg/dL Creatinine 0.77 0.5-1.4 mg/dL Estimated Glomerular Filt Rate > 60 NOTE: For -Kitt[place] individuals, multiply the result by 1.210. Chronic Kidney Disease: Estimated GFR < 60 mL/min/1.73m2 Severe Kidney Disease: Estimated GFR < 15 mL/min/1.73m2 Glucose Fasting 101 60-99 mg/dL A fasting glucose from 100-125 mg/dl is considered impaired (pre-diabetes). Calcium 9.1 8.4-10.2 mg/dL Bilirubin Total 0.6 0.0-1.0 mg/dL Aspartate Amino Transferase 22 5-31 U/L Alanine Aminotransferase 18 0-31 U/L Total Protein 7.1 6.5-8.0 g/dL Albumin Level 4.0 3.5-5.0 g/dL Alkaline Phosphatase 73 39-117 U/L Lipid Panel Reviewed date:04/28/2023 12:40:56 PM Interpretation: Performing Lab:[facility], [address] [place] [phone] Notes/Report: Triglycerides 72 <150 mg/dL Desirable Triglyceride: less than 150 mg/dL Borderline High Triglyceride 150-199 mg/dL High Triglyceride: 200-499 mg/dL Very High Triglyceride: greater than or equal to 5OO mg/dL Cholesterol 171 <200 mg/dL Desirable Cholesterol: less than 200 mg/dL Borderline High Cholesterol: 200-239 mg/dL High Cholesterol: greater than 239 mg/dL LDL Cholesterol Calculated 89 <100 mg/dL Desirable LDL: less than 100 mg/dL Near Optimal/Above Optimal LDL: 110-129 mg/dL Borderline High LDL: 130-159 mg/dL High LDL: 160-189 mg/dL Very High LDL: greater than or equal to 190 mg/dL HDL Cholesterol 68 >40 mg/dL Desirable HDL: greater than 40 mg/dL Note: This HDL assay may give artificially low results in patients with liver disease. Vitamin D 25-OH Total Reviewed date:04/28/2023 12:30:49 PM Interpretation: Performing Lab:[facility], [address] [place] [phone] Notes/Report: Vitamin D 25-OH Total 47.7 >30 ng/mL Health Based Reference Values* < [...] confirmed with another method such as LC-MS/MS. Liver Panel Reviewed date:11/11/2023 04:42:18 PM Interpretation: Performing Lab:[facility], [address] [place] [phone] Notes/Report: Bilirubin Total 0.8 0.0-1.0 mg/dL Bilirubin Direct 0.3 0.0-0.5 mg/dL Aspartate Amino Transferase 21 5-31 U/L Alanine Aminotransferase 18 0-31 U/L Total Protein 6.8 6.5-8.0 g/dL Albumin Level 4.0 3.5-5.0 g/dL Alkaline Phosphatase 69 39-117 U/L Lipid Panel with Reflex Reviewed date:11/11/2023 04:42:04 PM Interpretation: Performing Lab:[facility], [address] [place] [phone] Notes/Report: Triglycerides 118 <150 mg/dL Desirable Triglyceride: [...] low results in patients with liver disease. UA ClnCatch+Micro w/rflx Cul t (Not yet reviewed by provider) Interpretation: Performing Lab:[facility], [address] [place] [phone] Notes/Report: [id number] Urine, Clean Catch Color Urine Yellow Appearance Urine Clear PH 5.5 5.0-9.0 Glucose Urine UA Negative Negative mg/dL Urine Blood Small (1+) Negative Specific [place] - Urine 1.015 1.005-1.025 Urine Protein Negative [...] ff Reviewed date:04/26/2024 12:32:24 PM Interpretation: Performing Lab:[facility], [address] [place] [phone] Notes/Report: White Blood Count 5.2 4.8-10.8 X10*3/uL [...] 0.0-0.2 /100WBC Neutrophils Absolute Auto 3.3 2.0-8.3 x10*3/uL Imm Gran Abs Auto 0.01 0.00-0.03 X10*3/uL Lymphocytes Absolute Auto 1.3 1.2-4.9 X10*3/uL Monocytes Absolute Auto 0.4 0.1-1.2 X10*3/uL Eosinophils Absolute Auto 0.2 0.0-0.4 X10*3/uL Basophils Absolute Auto 0.0 0.0-0.2 X10*3/uL NRBC Abs Auto 0.000 0.0-0.012 X10*3/uL Comprehensive [place]. Panel Fa st Reviewed date:04/26/2024 12:32:08 PM Interpretation: Performing Lab:[facility], [address] [place] [phone] Notes/Report: Sodium 144 135-145 mmol/L Potassium 3.8 [...] Panel Reviewed date:04/26/2024 12:32:32 PM Interpretation: Performing Lab:[facility], [address] [place] [phone] Notes/Report: Triglycerides 95 <150 mg/dL Desirable Triglyceride: [...] Total Reviewed date:04/26/2024 12:32:47 PM Interpretation: Performing Lab:[facility], [address] [place] [phone] Notes/Report: Vitamin D 25-OH Total 48.1 >30 [...] confirmed with another method such as LC-MS/MS. Occult Blood, Stool, Guaiac Reviewed date:05/02/2023 11:02:01 AM Interpretation:Negative Performing Lab: Notes/Report: Negative Occult Blood, Stool, Guaiac Neg UA ClnCatch+Micro w/rflx Cul t Reviewed date:05/02/2023 05:16:23 PM Interpretation: Performing Lab:[facility], [address] [place] [phone] Notes/Report: Urine, Clean Catch Color Urine Yellow Appearance Urine Clear PH 7.0 5.0-9.0 Glucose Urine UA Negative Negative mg/dL Urine Blood Negative Negative Specific [place] - Urine 1.010 1.005-1.025 Urine Protein Negative Neg-Trace mg/dL Urine Ketones Negative Negative mg/dL Nitrite Urine Negative Negative Leukocyte Esterase Urine Trace Negative RBC Urine 0-2 0-2 /HPF WBC Urine 0-5 0-5 /HPF Squamous Epithelial Cell Urine 0-2 0-2 /HPF Bacteria Urine None Seen None Seen Hyaline Casts Urine 0-2 0-2 /LPF Hold Gold Reviewed date:04/28/2023 12:30:57 PM Interpretation: Performing Lab:[facility], [address] [place] [phone] Notes/Report: Glenn Nair See Note Specimen held untested for 24 hours; Call to request Chemistry testing. Pathology Reviewed date:10/20/2023 04:10:58 PM Interpretation: Performing Lab:[facility], [address] [place] [phone] Notes/Report: -- ---- Name: Erika Barrientos Age/Sex: 72/F : 1950 [facility]#: [id number] Unit#: [id number] Attend Dr: Crystal Mosqueda [facility] Re10/17/23 Status : [facility] REF Location: [facility] Disch: -- ---- SPEC : [id number] RECD : 10/20/23 STATUS: [facility] NUM: [id number] ESEQUIEL: 10/17/23-[address] [facility] DR: Crystal Mosqueda [facility] ENTERED: 10/20/23- 32 SP TYPE: Cytology OTHR DR: Adair Diane MD ORDERED: Cyto-enhanced Diagnosis Urine: Negative for high-grade urothelial carcinoma. See comment. COMMENT: Cellular specimen consisting of single urothelial cells, squamous cells, few red blood cells and few mixed inflammatory cells. Clinical History Microscopic hematuria Material Received Urine Gross Description Received is 8 cc of pale yellow fluid from which a ThinPrep slide is prepared. Copies To: Adair Diane MD [facility] [address] [place] [address] [address] [place], [place] [id number] Crystal Mosqueda [facility] [address] [place] [address] [address] [place] [address] [email or web address] -- ---- Signed (signature on file) Pillo Ernst MD 10/20/23 1359 -- ---- END OF REPORT Glenn Nair Reviewed date:11/11/2023 12:34:50 PM Interpretation: Performing Lab:[facility], [address] [place] [phone] Notes/Report: Glenn Nair See Note Specimen held untested for 24 hours; Call to request Chemistry testing. MM tomosynthesis screening B I Reviewed date:01/30/2024 12:30:32 PM Interpretation: Performing Lab: Notes/Report: [facility] [address] [place] [address] Mammography Report Signed Patient: Erika Barrientos MR#: [id number] : 1950 Acct:[id number] Age/Sex: 73 / F ADM Date: 01/26/24 Loc: HO.MAMMO Attending Dr: Adair Diane MD Ordering Physician: Adair Diane MD Results: 2Be nign Findings Date of Service: 01/26/24 Follow Up: 1 Year From Orig inal Mammogram Procedure(s): MM tomosynthesis screening BI Accession Number(s): [id number] cc: Adair Diane MD EXAMINATION: MM SCREENING DIGITAL BREAST TOMOSYNTHESIS, BILATERAL CLINICAL INFORMATION: Screening. Asymptomatic. COMPARISON: Mammography: Comparison is made with available priors TECHNIQUE: Digital breast mammography with tomosynthesis is performed in both the craniocaudal and mediolateral oblique views along with computer-aided detection (CAD). FINDINGS: There are scattered areas of fibroglandular density (ACR BI-RADS breast composition Category b). Left marker clip. There are no significant masses, abnormal calcifications, or other abnormalities. MM/MM tomosynthesis screening BI IMPRESSION: No mammographic evidence of malignancy. ASSESSMENT: BI-RADS BI-RADS 2 - Benign Findings RECOMMENDATION: Routine annual mammography screening. 1 year F/U This examination should not preclude the clinical evaluation of a suspicious palpable abnormality. This patient's information was entered into a reminder system with a target due date for their next mammogram. Electronically signed by: Manuela Roth DO 01/30/2024 10:48 AM EST Dictated By: Manuela Roth DO Signed By: <Electronically signed by Manuela Roth DO in OV> 01/30/24 1048 DD/ 0840 TD/TT: 01/26/24 0859 Ore Feeder: Jose Antonio [facility] [address] [place] [address] Mammography Report Signed Patient: Erika Barrientos MR#: [id number] : 1950 Acct:[id number] Age/Sex: 73 / F ADM Date: 01/26/24 Loc: HO.MAMMO Attending Dr: Adair Diane MD Ordering Physician: Adair Diane MD Results: 2Be nign Findings Date of Service: 01/26/24 Follow Up: 1 Year From Orig ina Mammogram Procedure(s): MM tomosynthesis screening BI Accession Number(s): [id number] cc: Adair Diane MD EXAMINATION: MM SCREENING DIGITAL BREAST TOMOSYNTHESIS, BILATERAL CLINICAL INFORMATION: Screening. Asymptomatic. COMPARISON: Mammography: Comparison is made with available priors TECHNIQUE: Digital breast mammography with tomosynthesis is performed in both the craniocaudal and mediolateral oblique views along with computer-aided detection (CAD). FINDINGS: There are scattered areas of fibroglandular density (ACR BI-RADS breast composition Category b). Left marker clip. There are no significant masses, abnormal calcifications, or other abnormalities. MM/MM tomosynthesis screening BI IMPRESSION: No mammographic evidence of malignancy. ASSESSMENT: BI-RADS BI-RADS 2 - Benign Findings RECOMMENDATION: Routine annual mammography screening. 1 year F/U This examination should not preclude the clinical evaluation of a suspicious palpable abnormality. This patient's information was entered into a reminder system with a target due date for their next mammogram. Electronically mikey d by: Manuela Roth DO 01/30/2024 10:48 AM EST Dictated By: Manuela Roth DO Signed By: <Electronically signed by Manuela Roth DO in OV> 01/30/24 1048 DD/ 0840 TD/TT: 01/26/24 0859 Ore Feeder: Reason For Referral No Information Medications Medication SIG (Take, Route, Frequency, Duration) Notes Start Date End Date Status Nystatin 991255 UNIT/GM 1 application to affected area Externally Twice a day for 14 days 08/14/2018 Not-Taking Omeprazole 20 MG 1 capsule 30 minutes before morning meal Orally Once a day for 30 day(s) Not-Taking Atorvastatin Calcium 20 MG TAKE 1 TABLET BY MOUTH EVERY DAY FOR 90 DAYS for 90 Active Vitamin D (Cholecalciferol) 25 MCG (1000 UT) 1 capsule Orally Once a day 04/26/2021 Active Immunizations Vaccine Route Administration Date Status Comme nts Fluarix Quadrivalent IM Intramuscular 11/28/2016 Administe red Fluarix Quadrivalent IM Intramuscular 11/03/2017 Administe red Fluarix Quadrivalent IM Intramuscular 11/02/2018 Administe red Prevnar 13 IM Intramuscular 10/14/2019 Administered TDaP IM Intramuscular 09/30/2019 Administered Done a jordyn GRIJALVA [facility] [address] Influenza High Dose IM Intramuscular 10/29/2019 Administer ed Influenza High Dose IM Intramuscular 11/03/2020 Administer ed SARS-COV-2 Moderna Unknown 04/25/2020 Administered SARS-COV-2 Moderna Unknown 05/23/2020 Administered SARS-COV-2 Moderna Unknown 01/12/2021 Administered Influenza High Dose IM Intramuscular 12/25/2021 Administer ed Influenza High Dose IM Intramuscular 11/18/2022 Administer ed Influenza High Dose IM Intramuscular 11/11/2023 Administer ed Prevnar 13 Unknown 05/30/2017 Refused PPSV23 (Pnemovax) Unknown 11/06/2017 Refused Prevnar 13 Unknown 11/06/2017 Refused Prevnar 13 Unknown 08/03/2018 Refused Social History Tobacco Use: Social History Observation Description Date Details (start date - stop date) Former Smoker NA - NA Tobacco Use/Smoking Question Answer Notes Patient is a former smoker How long has it been since y ou last smoked? > 10 years Additional Findings: Tobacco Non-User Fo rmer smoker, currently using no form of tobacco Alcohol Screen Question Answer Notes Did you have a drink contain ing alcohol in the past year? Yes How often did you have a dri nk containing alcohol in the past year? 2 to 4 times a month (2 points) How many drinks did you have on a typical day when you were drinking in the past year? 1 or 2 drinks (0 point) How often did you have 6 or more drinks on one occasion in the past year? Never (0 point) Points 2 Interpretation Negative Problems Problem Type SNOMED Code ICD Code Onset Dates Problem Status W/U Status Risk Notes Problem 75214573 Age-related osteoporosis without current pathological fracture (M81.0) Active confirmed Problem 08898524 Vitamin D defici ency (E55.9) Active confirmed Problem 442643392 Other specified menopausal and perimenopausal disorders (N95.8) Active confirmed Problem 463759929 Abnormal mammogr am of left breast (R92.8) Active confirmed Problem 405145014 Abnormal mammogr am (R92.8) Active confirmed Problem Fibrocystic breast changes (74005141) Fibrocystic breast, left (N60.12) Active confirmed Problem 74028543 Hypercholesterem ia (E78.00) Active confirmed Problem 52526765 High cholesterol (E78.00) Active confirmed Problem 520625399 Osteopenia deter mined by x-ray (M85.80) Active confirmed Problem 77421183 De Quervain's di sease (tenosynovitis) (M65.4) Active confirmed Vital Signs Blood pressure diastolic 68 mm Hg 11/20/2023 Height 61.5 in 11/20/2023 Blood pressure systolic 130 mm Hg 11/20/2023 Weight 175 lbs 11/20/2023 BMI 32.53 kg/m2 11/20/2023 Encounters Encounter Location Date Provider Diagnosis Adair Diane MD [address] [place], [place] [phone] 04/28/2023 Adair Diane Hypercholesteremia E 78.00 and Vitamin D deficiency E55.9 Adair Diane MD [address] [place] [id number] 11/11/2023 Adair Diane High cholesterol E78 .00 and Encounter for immunization Z23 Adair Diane MD [address] [place] [id number] 04/26/2024 Adair Diane High cholesterol E78 .00 and Vitamin D deficiency E55.9 Adair Diane MD [address] [id number] 05/02/2023 Adair Diane High cholesterol E78 .00 ; Osteopenia determined by x-ray M85.80 ; Vitamin D deficiency E55.9 ; Abnormal mammogram R92.8 ; Colon cancer screening Z12.11 and Depression screening Z13.31 Adair Diane MD [address] [place] [id number] 11/20/2023 Adair Diane Hypercholesteremia E 78.00 Assessments Encounter Date Diagnosis (ICD Code) Assessment Notes Treatment Notes Treatment Clinical Notes Section Notes 04/28/2023 Hypercholesteremia (ICD-10 - E78.00) 04/28/2023 Vitamin D deficiency (ICD-10 - E55.9) 11/11/2023 High cholesterol (ICD-10 - E78.00) 11/11/2023 Encounter for immunization (ICD-10 - Z23) 04/26/2024 High cholesterol (ICD-10 - E78.00) 05/02/2023 High cholesterol (ICD-10 - E78.00) doing well, will continue current regiment 05/02/2023 Osteopenia determine d by x-ray (ICD-10 - M85.80) doing better, will continue to monitor 11/20/2023 Hypercholesteremia (ICD-10 - E78.00) continue on present meds. doing great, is at goal 04/26/2024 Vitamin D deficiency (ICD-10 - E55.9) 05/02/2023 Vitamin D deficiency (ICD-10 - E55.9) stabke, will continue current regiment 05/02/2023 Abnormal mammogram (ICD-10 - R92.8) was good this year, will continue to monitor 05/02/2023 Colon cancer screeni ng (ICD-10 - Z12.11) guaiac negative 05/02/2023 Depression screening (ICD-10 - Z13.31) negative screen Plan Of Treatment Pending Test Test Name Order Date Electrocardiogram (EKG) 07/18/2017 Electrocardiogram (EKG) 08/14/2018 BONE DENSITY DEXA 04/17/2020 UA ClnCatch+Micro w/rflx Cult 04/26/2024 Next Appt Details Provider Name:Adair Adams ier, 05/04/2024 10:00:00 AM, [address] [place] [address], [address], [place], [place], [phone], Insurance Providers Payer Name Payer Address Payer Phone Subscriber Number Group Number Insured Name Patient Relationship to Insured Coverage Start Date Coverage End Date [employer] [address] [place] [address] [id number] ERIKA BARRIENTOS Self - patient is the insured [address] [place] [phone] [id number] ERIKA BARRIENTOS Self - patient is the insured Medical (General) History Medical History History ICD Code history of bladder polyp man y years ago. by dr rachid valiente. negative cysto 2018
== END 2024-04-26 07:01 | disposition home or self-care (01) ==
LOC: HO.LNP 07:00
PROVIDERS: Visit Provider Internal Medicine
DX: E78.00 Pure hypercholesterolemia, unspecified (principal); E55.9 Vitamin D deficiency, unspecified
CPT/HCPCS: 80053; 80061; 81001; 82306; 85025; 87086

== ENCOUNTER 2024-10-18 09:16 | Outpatient (AMB) | payer MEDICARE, OTHER, SELFPAY ==
--- OUTSIDE RECORDS SUMMARY | 2024-04-26 03:00 | XMS_ITS ---
Author Organization Adair Diane MD Address [address] [place] [phone] Care Team Providers Care Floorwalker Name Role Phone Adair Diane Primary Care Provider Results Component Value Reference Range Notes Complete Blood Count Auto Di ff Reviewed date:04/26/2024 12:32:24 PM Interpretation: Performing Lab:[facility], [address] [place] [phone] Notes/Report: White Blood Count 5.2 4.8-10.8 X10*3/uL Red Blood Count 4.63 4.20-5.50 X10*6/uL Hemoglobin 13.6 12.0-16.0 g/dl Hematocrit 42.3 37.0-47.0 % Mean Corpuscular Volume 91.4 80.0-98.0 fL Mean Corpuscular Hemoglobin 29.4 27.0-33.0 pg Mean Corpuscular HGB Conc 32.2 31.0-35.0 g/dl Red Cell Distribution Width 13.5 11.0-16.0 % Platelet Count 314 160-400 X10*3/uL Mean Platelet Volume 9.5 9.4-12.3 fL Neutrophils Percent Auto 62.9 45-73 % Imm Gran Pct Auto 0.2 0.0-0.4 % Lymphocytes Percent Auto 25.7 20-40 % Monocytes Percent Auto 7.7 2-11 % Eosinophils Percent Auto 2.9 0-4 % Basophils Percent Auto 0.6 0-2 % NRBC Pct Auto 0.0 0.0-0.2 /100WBC Neutrophils Absolute Auto 3.3 2.0-8.3 x10*3/u L Imm Gran Abs Auto 0.01 0.00-0.03 X10*3/uL Lymphocytes Absolute Auto 1.3 1.2-4.9 X10*3/u L Monocytes Absolute Auto 0.4 0.1-1.2 X10*3/uL Eosinophils Absolute Auto 0.2 0.0-0.4 X10*3/u L Basophils Absolute Auto 0.0 0.0-0.2 X10*3/uL NRBC Abs Auto 0.000 0.0-0.012 X10*3/uL Comprehensive [place]. Panel Fa st Reviewed date:04/26/2024 12:32:08 PM Interpretation: Performing Lab:[facility], [address] [place] [phone] Notes/Report: Sodium 144 135-145 mmol/L Potassium 3.8 3.3-5.1 mmol/L Chloride 107 96-108 mmol/L Carbon Dioxide 29 22-29 mmol/L Anion Gap 12 12-20 Blood Urea Nitrogen 12 9-16 mg/dL Creatinine 0.80 0.5-1.4 mg/dL Estimated Glomerular Filt Rate > 60 Chronic Kidney Disease: Estimated GFR < 60 mL/min/1.73m2 Severe Kidney Disease: Estimated GFR < 15 mL/min/1.73m2 Glucose Fasting 107 60-99 mg/dL A fasting glucose from 100-125 mg/dl is considered impaired (pre-diabetes). Calcium 9.0 8.4-10.2 mg/dL Bilirubin Total 0.7 0.0-1.0 mg/dL Aspartate Amino Transferase 26 5-31 U/L Alanine Aminotransferase 17 0-31 U/L Total Protein 7.4 6.5-8.0 g/dL Albumin Level 4.0 3.5-5.0 g/dL Alkaline Phosphatase 75 39-117 U/L Lipid Panel Reviewed date:04/26/2024 12:32:32 PM Interpretation: Performing Lab:[facility], [address] [place] [phone] Notes/Report: Triglycerides 95 <150 mg/dL Desirable Triglyceride: less than 150 mg/dL Borderline High Triglyceride 150-199 mg/dL High Triglyceride: 200-499 mg/dL Very High Triglyceride: greater than or equal to 5OO mg/dL Cholesterol 167 <200 mg/dL Desirable Cholesterol: less than 200 mg/dL Borderline High Cholesterol: 200-239 mg/dL High Cholesterol: greater than 239 mg/dL LDL Cholesterol Calculated 77 <100 mg/dL Desirable LDL: less than 100 mg/dL Near Optimal/Above Optimal LDL: 110-129 mg/dL Borderline High LDL: 130-159 mg/dL High LDL: 160-189 mg/dL Very High LDL: greater than or equal to 190 mg/dL HDL Cholesterol 71 >40 mg/dL Desirable HDL: greater than 40 mg/dL Note: This HDL assay may give artificially low results in patients with liver disease. Vitamin D 25-OH Total Reviewed date:04/26/2024 12:32:47 PM Interpretation: Performing Lab:[facility], [address] [place] [phone] Notes/Report: Vitamin D 25-OH Total 48.1 >30 ng/mL Health Based Reference Values* < 20 ng/mL Deficient 20-30 ng/mL Insufficient > 30 ng/mL Sufficient *Mayda POWER. N Engl J Med. 2007;357:266-280 Care must be taken in interpreting Vitamin D results from different laboratories and methodologies. Published data demonstrated that results from patients undergoing hemodialysis may show a negative bias when tested with various automated 25-OH vitamin D assays when compared to LC-MS/MS. When testing samples from patients whose predominant form of Vitamin D is Vitamin D2, such as patients receiving Vitamin D2 supplementation, results that are subtherapeutic should be confirmed with another method such as LC-MS/MS. UA ClnCatch+Micro w/rflx Cul t Reviewed date:04/26/2024 04:12:41 PM Interpretation: Performing Lab:[facility], [address] [place] [phone] Notes/Report: [id number] Urine, Clean Catch Color Urine Yellow Appearance Urine Clear PH 5.5 5.0-9.0 Glucose Urine UA Negative Negative mg/dL Urine Blood Small (1+) Negative Specific [place] - Urine 1.015 1.005-1.025 Urine Protein Negative Neg-Trace mg/dL Urine Ketones Negative Negative mg/dL Nitrite Urine Negative Negative Leukocyte Esterase Urine Small (1+) Negative RBC Urine 0-2 0-2 /HPF WBC Urine 6-10 0-5 /HPF Squamous Epithelial Cell Urine 3-5 0-2 /HPF Bacteria Urine None Seen None Seen Hyaline Casts Urine 0-2 0-2 /LPF REASON FOR VISIT FASTING LABS Encounters Encounter Location Date Provider Diagnosis Adair Diane MD [address] [place] [phone] 04/26/2024 Adair Diane High cholesterol E78.00 and Vitamin D deficiency E55.9 Assessments Encounter Date Diagnosis (ICD Code) Assessment Notes Treatment Notes Treatment Clinical Notes Section Notes 04/26/2024 High cholesterol (ICD-10 - E78.00) 04/26/2024 Vitamin D deficiency (ICD-10 - E55.9) Plan Of Treatment Next Appt Details Provider Name:Adair espinal, 11/02/2024 07:15:00 AM, [address] [place] [address], [address], [phone], Provider Name:Adair espinal, 11/08/2024 08:30:00 AM, [address] [place] [address], [address], [phone], Provider Name:Adair espinal, 05/02/2025 07:00:00 AM, [address] [place] [address], [phone], Provider Name:Adair espinal, 05/09/2025 10:00:00 AM, [address] [place] [address], [phone], Progress Notes * WILLIAM SEGURAOB: (73 yo F)Acc No.[id number]:04/26/2024 Progress Note Patient: ERIKA HEATH Provider: Khadra Diane MD :1950 A ge:73 Y S ex:Female Date:04/26/2024 Address:[address] [place] [address], [id number] Subjective: * Chief Complaints: * 1 . FASTING LABS. * Medical History: Objective: * Vitals: Assessment: * Assessment: 1. H igh cholesterol - E78.00 (Primary) 2 . V itamin D deficiency - E55.9? Plan: * Treatment: 2. V itamin D deficiency L AB: Complete Blood Count Auto Diff (Collection Date & Time - 04/26/2024 07:00 AM) L AB: Comprehensive [place]. Panel Fast (Collection Date & Time - 04/26/2024 07:00 AM) L AB: Lipid Panel (Collection Date & Time - 04/26/2024 07:00 AM) L AB: Vitamin D 25-OH Total (Collection Date & Time - 04/26/2024 07:00 AM) L AB: UA ClnCatch+Micro w/rflx Cult (Collection Date & Time - 04/26/2024 07:00 AM) * Procedure Codes: 3 6415 VENIPUNCT, ROUTINE* * * The named appointment provid er may or may not be the originator of this progress note, and it is not deemed complete until electronically signed by the appointment provider. Sign off status: Pending * Provider: Khadra Diane MD Date: 0 04/26/2024 Generated for Yusra preston/Jamison/Sahilitting on: 0 10/18/2024 09:59 AM EDT
--- NOTE | 2024-10-18 09:20 | A.OFFVIS_ITS ---
Intake Visit Reasons: 1y follow up Intake Note: Patient presents for follow up visit on:1y F/U Urology Medications: ESTRADIOL Blood Thinner: none ALLERGIES:NONE Interior Design Professional Required: No Allergies No Known Allergies Allergy (Verified 10/18/24 09:55) Medication List - Last Reconciled 10/18/24 by ABIDA Grace atorvastatin 20 mg PO DAILY HPI Comments Details: Christina Scott is a 73-year-old female patient of Dr. Diane. She has a past medical history of abnormal mammogram, age related osteoporosis, bladder polyp with negative cystoscopy in 2018, De Quervains syndrome, fibrocystic disease of the left breast, hypercholesteremia, and vitamin-D deficiency. She presents to the office today for follow-up of her microscopic hematuria. In discussion with the patient today with the patient today she reports to be doing and feeling since her last office visit here one year ago. She denies any bothersome urinary issues or concerns. Previous urine cytology results reviewed as noted and trended below. She discusses her longstanding history of microscopic hematuria for many years now and her previous history with workups that all have been within normal limits. She reports having had workups in the past as she previously smoked however has been smoke free for over 35 years now. We discussed reasons for blood in the urine may include but are not limited to kidney stones, cancer in the urinary tract, kidney stone disease or inflammatory conditions of the urinary tract. I have discussed workup to include cystoscopy evaluation. However, patient does not wish to have imaging or further workup at this time. She otherwise denies urinary urgency, urinary frequency, incontinence, hematuria, dysuria, foul smelling urine, changes to urinary stream, flank pain, fever, and or chills. She does report episodes of nocturia however describes these episodes as intermittent and feels she is ma naging well independently. She reports she has not been compliant with Estrace cream and does not wish to be. We did discuss benefits of Estrace cream. All questions were answered She is happy with her current voiding parameters. In office urinalysis results reviewed with the patient today. She otherwise offers no other issues or concerns at this time. Urine Cytology: 10/16 & 10/17 Negative for high-grade urothelial carcinoma PFSH Medical History Bladder polyp Abnormal mammogram of left breast Abnormal mammogram Fibrocystic disease of left breast Age related osteoporosis Osteopenia determined by x-ray High cholesterol De Quervain's syndrome (tenosynovitis) Other specified menopausal and perimenopausal disorders Vitamin D deficiency Review of Systems Const Reports as per HPI Eyes Reports no additional complaints ENT Reports no additional complaints Card Reports as per HPI Resp Reports no additional complaints GI Reports no additional complaints Reports as per HPI Musc Reports as per HPI Skin/Breast Reports as per HPI Neuro Reports no additional complaints Psych Reports no additional complaints Endo Reports no additional complaints Donald/Lymph Reports no additional complaints Aller/Immun Reports no additional complaints Physical Exam Const General: cooperative, healthy appearing, comfortable, no acute distress, well developed, alert and awake Orientation/consciousness: patient oriented x3 Limitations: no limitations HEENT Head: Yes normal to inspection, Yes normocephalic and Yes atraumatic Ears: hearing grossly normal bilaterally Eyes General: appearance normal, both eyes and all related structures Neck Neck: Yes normal visual inspection and Yes trachea midline Chest Chest palpation & inspection: normal inspection of the chest Resp Effort & Inspection: normal respiratory effort and able to speak in complete sentences Cardio Rate: regular rate GI Inspection: Yes normal to inspection General: Yes no CVA tenderness Back/Spine/Pelvis Back: no CVA tenderness Skin General skin exam: no rashes or lesions noted Neuro General: patient oriented x3 Extrem General: Yes normal to inspection Psych Appearance: grossly normal and well kempt Mental Status: mental status grossly normal Speech and movement: Normal speech and movement present and Clear speech present Affect: normal affect Attitude: cooperative Thought process: Normal thought process present Thought content: Normal thought content present Insight: Fair insight present (Psych) Judgement: Fair judgement present (Psych) Results AMB Urinalysis, Automated UA Leukoctes 15 Serjio/uL Last Edit by FILIPPO De Jesus on 10/18/24 09:59 UA Nitrite Negative Last Edit by FILIPPO De Jesus on 10/18/24 09:59 UA Urobilinogen 0.2 mg/dL Last Edit by FILIPPO De Jesus on 10/18/24 09:5 9 UA Protein 0 mg/dL Last Edit by FILIPPO De Jesus on 10/18/24 09:59 UA pH 6.0 Last Edit by FILIPPO De Jesus on 10/18/24 09:59 UA Blood 80 Isaias/uL Last Edit by FILIPPO De Jesus on 10/18/24 09:59 UA Specific Diana 1.015 Last Edit by FILIPPO De Jesus on 10/18/24 09: 59 UA Ketone Negative Last Edit by FILIPPO De Jesus on 10/18/24 09:59 UA Bilirubin 0 mg/dL Last Edit by FILIPPO De Jesus on 10/18/24 09:59 UA Glucose 0 mg/dL Last Edit by FILIPPO De Jesus on 10/18/24 09:59 Results Reviewed Results Reviewed: Laboratory Last Values Urine pH (Auto) 6.0 10/18/24 09:58 Specific Diana (Auto) 1.015 10/18/24 09:58 Urine Protein (Auto) 0 mg/dL 10/18/24 09:58 Glucose (UA)(Auto) 0 mg/dL 10/18/24 09:58 Urine Ketones (Auto) Negative 10/18/24 09:58 Urine Blood (Auto) 80 Isaias/uL 10/18/24 09:58 Urine Nitrite (Auto) Negative 10/18/24 09:58 Urine Bilirubin (Auto) 0 mg/dL 10/18/24 09:58 Urine Urobilinogen (Auto) 0.2 mg/dL 10/18/24 09:58 Leukocyte Esterase (Auto) 15 Serjio/uL 10/18/24 09:58 Assessment & Plan Assessment & Plan (1) Microscopic hematuria: Code(s): R31.29 - Other microscopic hematuria Category: Medical Plan In office urinalysis results reviewed with the patient today; as noted above; will send for urine cytology. Discussed at length potential causes for microscopic hematuria as well as further microscopic hematuria workup Patient declines obtaining imaging and in office cystoscopy for further assessment evaluation. Patient denies any bothersome urinary issues or concerns at this time. Discussed and educated on the importance of drinking plenty of water daily. We discussed Estrace cream All questions were answered Patient agreeable to surveillance monitoring of urine cytologies. Follow-up in 1 year; or sooner with any issues, concerns, and or questions. Orders: Orders AMB Urinalysis Automated Today Z13.9 - Encounter for screening, unspecified Urine Cytology Today R31.29 - Other microscopic hematuria Patient Instructions: The patient had an opportunity to ask questions regarding the treatment plan. All questions were answered. Physical exam, labs, and imaging were discussed and reviewed in detail. As well as risks, benefits, and discussion of treatment choices. No major barriers to understanding were identified. The patient expressed understanding and agreement with the above treatment plan. The patient was made aware they should contact our office by phone for worsening of their current condition, the appearance of new symptoms, or with any questions or concerns. Compliance is encouraged with any medications and follow up testing that is ordered. It is a privilege to be allowed the opportunity to participate in? your urological care.? Again, if you have any questions or concerns If you have any questions or concerns please do not hesitate to contact me. The office is [phone]. This note is constructed using voice recognition software. While every effort has been made to ensure accuracy caramel cutter machine errors may have been included. Yours sincerely, ABIDA Grace Coding Level of Care Code Est Pt Level 3 (02500) Diagnoses Microscopic hematuria R31.29
--- OUTSIDE RECORDS SUMMARY | 2024-10-18 10:00 | XMS_ITS | Encounter Summary ---
Author Organization [facility] Address [address] [place] [address] Phone Care Team Providers Care Warm In Worker Name Role Phone Irma Godinez MD Unavailable [phone] Joaquin Rose MD Unavailable [phone] Guillermina Adams PA-C Unavailable [phone] Juliet Lowe [facility] Unavailable [email or web address] Adair Diane MD Primary Care Provider Encounter Details Date Type Department Care Team (Late st Contact Info) Description 03/19/2019 Ancillary Orders [address] [address] Paulo Espinosa PA-C [address] [place] [address] Orthopedics & Sports Medicine, [place] [address] [email or web address] Left ankle pain, unspecified chronicity Social History Tobacco Use Types Packs/Day Years Used Date Smoking Tobacco: Former Cigarettes Q uit: 02/24/2014 Smokeless Tobacco: Never Alcohol Use Standard Drinks/Week Comments Yes 0 (1 standard drink = 0.6 oz pur e alcohol) occ Comments Unknown Sex and Gender Information Value Date Recorded Sex Assigned at Not on file Legal Sex Female 9:59 PM EDT Gender Identity Not on file Sexual Orientation Not on file documented as of this encounter Plan of Treatment Not on file documented as of this encounter Results * XR ANKLE 2 VIEWS WITH STRESS (LEFT) (03/19/2019 10:41 AM EST) Narrative SYSTEMGENERATED, DOCUMENTATION - 03/19/2019 10:41 AM EST This image report has been auto-finalized and has not been read by a Radiologist. Interpretation has been included in the provider encounter note for this date of service. Paulo Espinosa PA-C IMG XR LOWER EXTREMITY Final Result documented in this encounter Visit Diagnoses Diagnosis Left ankle pain, unspecified chronicity Left ankle pain, unspecified chronicity documented in this encounter Care Teams Warm In Worker Relationship Specialty Start Date End Date Adair Diane MD [address] [place] [address] [address] [place] [address] PCP - General Internal Medicine 09/22/18 Irma Godinez MD [address] [place] [address], [address] [place] [address] [email or web address] Historical LMR Provider 12/11/16 03/03/21 oJaquin Rose MD [address] [place] [address] [address] [place] [address] Historical LMR Provider 12/11/16 2 Guillermina Adams PA-C [address] [place] [address] Orthopedics [facility] Sports Medicine, [place] [address] [email or web address] Historical LMR Provider 12/11/16 03/03/21 Juliet Lowe, [facility] Historical LMR Provider 12/11/16 03/03/21 documented as of this encounter Additional Source Comments The information contained in this document represents components of the legal health record. It is not the complete legal health record.[facility]
== END 2024-10-18 10:01 | disposition home or self-care (01) ==
LOC: HO.HUSH 09:17
PROVIDERS: PCP Internal Medicine; Visit Provider Nurse Practitioner Family
DX: Z13.9 Encounter for screening, unspecified (principal); R31.29 Other microscopic hematuria
CPT/HCPCS: 99213

== ENCOUNTER 2024-10-18 09:16 | Outpatient (REF) | payer MEDICARE, OTHER, SELFPAY | END 2024-10-18 09:17 | disposition home or self-care (01) | LOC: HO.LAB 09:16 | PROVIDERS: PCP Internal Medicine; Visit Provider Nurse Practitioner Family | DX: R31.29 Other microscopic hematuria (principal); Z13.9 Encounter for screening, unspecified | CPT/HCPCS: 81003; 88112; 99212 ==

== ENCOUNTER 2024-11-15 11:32 | Outpatient (REF) | payer MEDICARE, OTHER, SELFPAY ==
--- OUTSIDE RECORDS SUMMARY | 2023-11-11 03:15 | XMS_ITS ---
Author Organization Adair Diane MD Address [address] [place], [place] [phone] Care Team Providers Care Track Grinder Name Role Phone Adair Diane Primary Care Provider Results Component Value Reference Range Notes Liver Panel Reviewed date:11/11/2023 04:42:18 PM Interpretation: Performing Lab:[facility], [address] [place] [id number] Notes/Report: Bilirubin Total 0.8 0.0-1.0 mg/dL Bilirubin Direct 0.3 0.0-0.5 mg/dL Aspartate Amino Transferase 21 5-31 U/L Alanine Aminotransferase 18 0-31 U/L Total Protein 6.8 6.5-8.0 g/dL Albumin Level 4.0 3.5-5.0 g/dL Alkaline Phosphatase 69 39-117 U/L Lipid Panel with Reflex Reviewed date:11/11/2023 04:42:04 PM Interpretation: Performing Lab:[facility], [address] [place] [phone] Notes/Report: Triglycerides 118 <150 mg/dL Desirable Triglyceride: less than 150 mg/dL Borderline High Triglyceride 150-199 mg/dL High Triglyceride: 200-499 mg/dL Very High Triglyceride: greater than or equal to 5OO mg/dL Cholesterol 168 <200 mg/dL Desirable Cholesterol: less than 200 mg/dL Borderline High Cholesterol: 200-239 mg/dL High Cholesterol: greater than 239 mg/dL LDL Cholesterol Calculated 72 <100 mg/dL Desirable LDL: less than 100 mg/dL Near Optimal/Above Optimal LDL: 110-129 mg/dL Borderline High LDL: 130-159 mg/dL High LDL: 160-189 mg/dL Very High LDL: greater than or equal to 190 mg/dL HDL Cholesterol 73 >40 mg/dL Desirable HDL: greater than 40 mg/dL Note: This HDL assay may give artificially low results in patients with liver disease. REASON FOR VISIT FASTING LIPIDS Immunizations Vaccine Route Administration Date Status Comme nts Influenza High Dose IM Intramuscular 11/11/2023 Administer ed Encounters Encounter Location Date Provider Diagnosis Adair Diane MD [address] [place] [phone] 11/11/2023 Adair Diane High cholesterol E78.00 and Encounter for immunization Z23 Assessments Encounter Date Diagnosis (ICD Code) Assessment Notes Treatment Notes Treatment Clinical Notes Section Notes 11/11/2023 High cholesterol (ICD-10 - E78.00) 11/11/2023 Encounter for immunization (ICD-10 - Z23) Plan Of Treatment Next Appt Details Provider Name:Adair espinal, 11/22/2024 11:15:00 AM, [address] [place] [address], [address], [phone], Provider Name:Adair espinal, 05/02/2025 07:00:00 AM, [address] [place] [address], [address], [phone], Provider Name:Adair espinal, 05/09/2025 10:00:00 AM, [address] [place] [address], [address], [phone], Progress Notes * WILLIAM SEGURAOB: 2 (74 yo F)Acc No.[id number]:11/11/2023 Progress Note Patient: Tico YAYAERIKA Provider: Khadra Diane MD :1950 A ge:72 Y S ex:Female Date:11/11/2023 Address:[address] [place] [address], [address] [id number] Subjective: * Chief Complaints: * 1 . FASTING LIPIDS. * Medical History: Objective: * Vitals: Assessment: * Assessment: 1. E ncounter for immunization - Z23 (Primary) 2 . H igh cholesterol - E78.00 Plan: * Treatment: * Immunizations: Influenza High Dose : 0.5 mL (Dose No:1) (Route: Intramuscular) given by Patricia Khalil , Office Staff on Left Deltoid * Procedure Codes: 9 0662 FLU VACC PRSV FREE INC ANTIG, 74190 VENIPUNCT, ROUTINE*, G0008 ADMN FLU VAC NO FEE SCHED SAME DAY * * The named appointment provid er may or may not be the originator of this progress note, and it is not deemed complete until electronically signed by the appointment provider. Sign off status: Pending * Provider: Khadra Diane MD Date: 0 11/11/2023 Generated for Yusra preston/Jamison/Sahilitting on: 0 11/15/2024 02:12 PM EDT
--- OUTSIDE RECORDS SUMMARY | 2023-11-20 06:45 | XMS_ITS ---
Author Organization Adair Diane MD Address [address] [place] [phone] Care Team Providers Care Sheriff'S Detective Name Role Phone Adair Diane Primary Care Provider Allergies No Known Allergies REASON FOR VISIT 6 MO F/U Medications Medication SIG (Take, Route, Frequency, Duration) Notes Start Date End Date Status Nystatin 429409 UNIT/GM 1 application to affected area Externally Twice a day for 14 days 08/14/2018 Not-Taking Omeprazole 20 MG 1 capsule 30 minutes before morning meal Orally Once a day for 30 day(s) Not-Taking Vitamin D (Cholecalciferol) 25 MCG (1000 UT) 1 capsule Orally Once a day 04/26/2021 Active Atorvastatin Calcium 20 MG 1 tablet Orally Once a day Active Vital Signs Blood pressure systolic 130 mm Hg 11/20/19 24 Blood pressure diastolic 68 mm Hg 024 Height 61.5 in 11/20/2023 Weight 175 lbs 11/20/2023 BMI 32.53 kg/m2 11/20/2023 Encounters Encounter Location Date Provider Diagnosis Adair Diane MD [address] [place] [phone] 11/20/2023 Adair Diane Hypercholesteremia E 78.00 Assessments Encounter Date Diagnosis (ICD Code) Assessment Notes Treatment Notes Treatment Clinical Notes Section Notes 11/20/2023 Hypercholesteremia (ICD-10 - E78.00) continue on present meds. doing great, is at goal Plan Of Treatment Medication Medication Name Sig Start Date Stop Date Notes Atorvastatin Calcium 20 MG 1 tablet Orally Once a day Treatment Notes Assessment Notes Hypercholesteremia continue on present meds. doing great, is at goal Next Appt Details Provider Name:Adair Adams ier, 11/22/2024 11:15:00 AM, [address] [place] [address], Suite [facility], [place], [place], [phone], Provider Name:Adair Adams ier, 05/02/2025 07:00:00 AM, [address] [place] [address], [address] [facility], [place], [place], [phone], Provider Name:Adair Adams ier, 05/09/2025 10:00:00 AM, [address] [place] [address], [address] [place] [address], [phone], Progress Notes * IMELDASHADIASANTOSHOB: (73 yo F)Acc No.[id number]:11/20/2023 Progress Notes Patient: ERIKA HEATH Provider: Khadra Diane MD :1950 A ge:73 Y S ex:Female Date:11/20/2023 Address:[address] [place], [place] [phone] Subjective: * Chief Complaints: * 6 MO F/U * HPI: S ymptom(s): patient is a 73 yo female here for 6 month follow up visit. * ROS: G eneral/Constitutional: Denies C hills. D enies F atigue. D enies F ever. D enies H eadache. E NT: Patient denies d ecreased sense of smell , any loss of taste , sore throat. D enies S ore throat. R espiratory: Denies C ough. D enies S hortness of breath at rest. D enies S hortness of breath with exertion. C ardiovascular: Denies C hest pain at rest. D enies C hest pain with exertion. D enies D izziness. D enies P alpitations. D enies S hortness of breath. G astrointestinal: Denies D iarrhea. D enies N ausea. M usculoskeletal: Patient denies m uscle aches. P eripheral Vascular: Patient denies r ed and blue toes. * Medical History: * Surgical History: * Hospitalization/Major Diagno stic Procedure: * Medications: T akingVitamin D (Cholecalciferol) 25 MCG (1000 UT) Capsule 1 capsule Orally Once a dayAtorvastatin Calcium 20 MG Tablet 1 tablet Orally Once a dayTaking Vitamin D (Cholecalciferol) 25 MCG (1000 UT) Capsule 1 capsule Orally Once a dayTaking Atorvastatin Calcium 20 MG Tablet 1 tablet Orally Once a dayNot- Taking/PRNOmeprazole 20 MG Capsule Delayed Release 1 capsule 30 minutes before morning meal Orally Once a dayNystatin 097528 UNIT/GM Cream 1 application to affected area Externally Twice a dayMedication List reviewed and reconciled with the patientNot-Taking/PRN Omeprazole 20 MG Capsule Delayed Release 1 capsule 30 minutes before morning meal Orally Once a dayNot-Taking/PRN Nystatin 097899 UNIT/GM Cream 1 application to affected area Externally Twice a dayMedication List reviewed and reconciled with the patient * Allergies: N .K.D.A.yes[Allergies Verified] Objective: * Vitals: H t: 61.5, Wt:175, BMI:32.53, BP:130/68. * P ast Orders: L ab:Liver Panel (Order Date - 11/11/2023) (Collection Date - 11/11/2023) Value Reference Range Bilirubin Total 0.8 0.0-1.0 - mg/dL Bilirubin Direct 0.3 0.0-0.5 - mg/dL Aspartate Amino Transferase 21 5-31 - U/L Alanine Aminotransferase 18 0-31 - U/L Total Protein 6.8 6.5-8.0 - g/dL Albumin Level 4.0 3.5-5.0 - g/dL Alkaline Phosphatase 69 39-117 - U/L L ab:Lipid Panel with Reflex (Order Date - 11/11/2023) (Collection Date - 11/11/2023) Value Reference Range Triglycerides 118 <150 - mg/dL Cholesterol 168 <200 - mg/dL LDL Cholesterol Calculated 72 <100 - mg/dL HDL Cholesterol 73 >40 - mg/dL * Examination: G eneral Examination: GENERAL APPEARANCE: alert, well hydrated, in no distress . HEAD: normocephalic. SKIN: good turgor. HEART: no murmurs, rubs, gallops, regular rate and rhythm. LUNGS: no wheezes, rales, rhonchi, good air movement, clear to auscultation bilaterally. Assessment: * Assessment: 1. H ypercholesteremia - E78.00 (Primary) Plan: * Treatment: * Procedure Codes: * * Sign off status: Completed true * Provider: Khadra Diane MD Date: 11/20/2023 Generated for Yusra preston/Jamison/Sahilitting on: 11/15/2024 02:12 PM EDT History and Physical Notes * HPI (History of Present Illness) Category Sub-Category Detail Notes Category Not es Symptom(s) patient is a 73 yo female here for 6 month follow up visit. Examination Category Sub-Category Detail Notes Category Not es General Examination GENERAL APPEARANCE: alert, w ell hydrated, in no distress HEAD: normocephalic HEART: no murmurs, rubs, ga llops, regular rate and rhythm LUNGS: no wheezes, rales, r honchi, good air movement, clear to auscultation bilaterally SKIN: good turgor
--- OUTSIDE RECORDS SUMMARY | 2024-04-26 03:00 | XMS_ITS ---
Author Organization Adair Diane MD Address [address] [place] [phone] Care Team Providers Care Food And Beverage Checker Name Role Phone Adair Diane Primary Care Provider [phone] Results Component Value Reference Range Notes Complete Blood Count Auto Di ff Reviewed date:04/26/2024 12:32:24 PM Interpretation: Performing Lab:[facility], [address] [place] [phone] Notes/Report: White Blood Count 5.2 4.8-10.8 X10*3/uL [...] NRBC Abs Auto 0.000 0.0-0.012 X10*3/uL Comprehensive [place]. Panel Fa st Reviewed date:04/26/2024 12:32:08 PM Interpretation: Performing Lab:[facility], [address] [place] [phone] Notes/Report: Sodium 144 135-145 mmol/L Potassium 3.8 [...] Panel Reviewed date:04/26/2024 12:32:32 PM Interpretation: Performing Lab:[facility], [address] [place] [phone] Notes/Report: Triglycerides 95 <150 mg/dL Desirable Triglyceride: [...] Total Reviewed date:04/26/2024 12:32:47 PM Interpretation: Performing Lab:[facility], [address] [place] [phone] Notes/Report: Vitamin D 25-OH Total 48.1 >30 [...] t Reviewed date:04/26/2024 04:12:41 PM Interpretation: Performing Lab:[facility], [address] [place] [phone] Notes/Report: [id number] Urine, Clean Catch Color Urine Yellow Appearance Urine Clear PH 5.5 5.0-9.0 Glucose Urine UA Negative Negative mg/dL Urine Blood Small (1+) Negative Specific [place] - Urine 1.015 1.005-1.025 Urine Protein Negative [...] Date Provider Diagnosis Adair Diane MD [address] [place] [address] [place] [phone] 04/26/2024 Adair Diane High cholesterol E78.00 and Vitamin D deficiency E55.9 Assessments Encounter Date Diagnosis (ICD Code) Assessment Notes Treatment Notes Treatment Clinical Notes Section Notes 04/26/2024 High cholesterol (ICD-10 - E78.00) 04/26/2024 Vitamin D deficiency (ICD-10 - E55.9) Plan Of Treatment Next Appt Details Provider Name:Adair espinal, 11/22/2024 11:15:00 AM, [address] [place] [address], [address], [phone], Provider Name:Adair espinal, 05/02/2025 07:00:00 AM, [address] [place] [address], [address], [phone], Provider Name:Adair espinal, 05/09/2025 10:00:00 AM, [address] [place] [address], [address], [phone], Progress Notes * SHADIA SEGURAEDOB: 2 (74 yo F)Acc No.[id number]:04/26/2024 Progress Note Patient: ERIKA HEATH Provider: Khadra Diane MD :1950 A ge:73 Y S ex:Female Date:04/26/2024 Address:[address] [place], [place] [phone] Subjective: * Chief Complaints: * 1 . FASTING LABS. * Medical History: Objective: * Vitals: Assessment: * Assessment: 1. H igh cholesterol - E78.00 (Primary) 2 . V itamin D deficiency - E55.9? Plan: * Treatment: 2. V itamin D deficiency L AB: Complete Blood Count Auto Diff (Collection Date & Time - 04/26/2024 07:00 AM) L AB: Comprehensive [place]. Panel Fast (Collection Date & Time - [...] 04/26/2024 Generated for Yusra preston/Jamison/Sahilitting on: 0 11/15/2024 02:12 PM EDT
--- OUTSIDE RECORDS SUMMARY | 2024-05-04 06:00 | XMS_ITS ---
Author Organization Adair Diane MD Address [address] [place] [id number] Care Team Providers Care Senior Accounting Analyst Name Role Phone Adair Diane Primary Care Provider Allergies No Known Allergies REASON FOR VISIT review labs Medications Medication SIG (Take, Route, Frequency, Duration) Notes Start Date End Date Status Omeprazole 20 MG 1 capsule 30 minutes before morning meal Orally Once a day for 30 day(s) Not-Taking Atorvastatin Calcium 20 MG TAKE 1 TABLET BY MOUTH EVERY DAY FOR 90 DAYS Active Vitamin D (Cholecalciferol) 25 MCG (1000 UT) 1 capsule Orally Once a day 04/26/2021 Active Nystatin 329999 UNIT/GM 1 application to affected area Externally Twice a day for 14 days 08/14/2018 Not-Taking Social History Tobacco Use: Social History Observation [...] Never (0 point) Points 2 Interpretation Negative Vital Signs Blood pressure systolic 122 mm Hg 05/05/19 25 Blood pressure diastolic 76 mm Hg 025 Height 61.5 in 05/04/2024 Weight 180 lbs 05/04/2024 BMI 33.46 kg/m2 05/04/2024 weight is up 5 pounds since 11-20-23 Encounters Encounter Location Date Provider Diagnosis Adair Diane MD [address] [place] [address] [address] [place], [place] [phone] 05/04/2024 Adair Diane High cholesterol E78.00 ; Vitamin D deficiency E55.9 ; Encounter for screening for malignant neoplasm of colon Z12.11 ; Encounter for screening for malignant neoplasm of rectum Z12.12 ; Actinic keratoses L57.0 and Depression screening Z13.31 Assessments Encounter Date Diagnosis (ICD Code) Assessment Notes Treatment Notes Treatment Clinical Notes Section Notes 05/04/2024 High cholesterol (ICD-10 - E78.00) stable, will continue current regiment, pending labs 05/04/2024 Vitamin D deficiency (ICD-10 - E55.9) stable, will continue current regiment 05/04/2024 Encounter for screening for malignant neoplasm of colon (ICD-10 - Z12.11) THE ORDER HAS BEEN FAXED TO [facility] 05/04/2024 Encounter for screening for malignant neoplasm of rectum (ICD-10 - Z12.12) 05/04/2024 Actinic keratoses (ICD-10 - L57.0) refer to principal military analyst/ ALL INFO GIVEN FOR [facility] 05/04/2024 Depression screening (ICD-10 - Z13.31) negative screen Plan Of Treatment Medication Medication Name Sig Start Date Stop Date Notes Atorvastatin Calcium 20 MG TAKE 1 TABLET BY MOUTH EVERY DAY FOR 90 DAYS Vitamin D (Cholecalciferol) 25 MCG (1000 UT) 1 capsule Orally Once a day 04/26/2021 Treatment Notes Assessment Notes High cholesterol stable, will continu e current regiment, pending labs Vitamin D deficiency stable, will contin ue current regiment Encounter for screening for malignant neoplasm of colon THE ORDER HAS BEEN FAXED TO [facility] E Actinic keratoses refer to dermatologi st/ ALL INFO GIVEN FOR [facility] Depression screening negative screen Pending Test Test Name Order Date [facility] 05/04/2024 Liver Panel 05/04/2024 Lipid Panel 05/04/2024 Next Appt Details Follow Up: 6 Months, Reason: Provider Name:Adair Adams ier, 11/22/2024 11:15:00 AM, [address], [address], [place], [place], [phone], Provider Name:Adair Adams ier, 05/02/2025 07:00:00 AM, [address], [address], [place], [place], [phone], Provider Name:Adair Johns Bryan ier, 05/09/2025 10:00:00 AM, [address], [address], [place], [place], [phone], Progress Notes * WILLIAM SEGURAOB: 2 (73 yo F)Acc No.[id number]:05/04/2024 Patient: ERIKA HEATH Provider: Khadra Diane MD :1950 A ge:73 Y S ex:Female Date:05/04/2024 Address:[address] [place], [place] [id number] Subjective: * Chief Complaints: * R eview labs * HPI: D epression Screening: PHQ-9 L ittle interest or pleasure in doing things N ot at all, F eeling down, depressed, or hopeless N ot at all, T rouble falling or staying asleep, or sleeping too much N ot at all, F eeling tired or having little energy N ot at all, P oor appetite or overeating N ot at all, F eeling bad about yourself or that you are a failure, or have let yourself or your family down N ot at all, T rouble concentrating on things, such as reading the newspaper or watching television N ot at all, M oving or speaking so slowly that other people could have noticed; or the opposite, being so fidgety or restless that you have been moving around a lot more than usual N ot at all, T houghts that you would be better off or of hurting yourself in some way N ot at all, T otal Score 0 . I nterpretation and Intervention D epression Screening Findings N egative, F ollow-Up for Depression : review of PHQ-9 found negative result, no follow-up needed. C ommunication Needs: Communication Needs D oes the patient have a hearing impairment N o, D oes the patient have a vision impairment? Y es, I f yes, what is the vision impairment? G lasses, D oes the patient have a cognition impairment? N o. F all Risk: History H ave you had any falls with injury in the past year? N o, H ave you had two or more falls in the past year? N o. S NAIDA Questions: SDOH Questions I n the past year have you been worried about losing housing? N o, I n the past year have you or any family members you live with been unable to get any of the following when it was really needed? Check all that apply: N one. * ROS: G eneral/Constitutional: Change in appetite d enies. C hills d enies. F ever d enies. O phthalmologic: Blurred vision d enies. D ischarge d enies. P ain d enies. E NT: Decreased hearing d enies. S ore throat d enies.?Swollen glands d enies. E ndocrine: Cold intolerance d enies. E xcessive thirst d enies. H eat intolerance d enies. W eight loss d enies. R espiratory: Cough d enies. S hortness of breath at rest d enies. S hortness of breath with exertion d enies. W heezing d enies. C ardiovascular: Chest pain at rest d enies. C hest pain with exertion?denies. I rregular heartbeat d enies. S hortness of breath d enies. ? G astrointestinal: Abdominal pain d enies. C hange in bowel habits d enies. D iarrhea d enies. N ausea d enies. R ectal bleeding d enies. V omiting d enies . G enitourinary: Blood in urine d enies. D ifficulty urinating d enies. F requent urination d enies. U rinary incontinence D enies. M usculoskeletal: Painful joints d enies. W eakness d enies. ? S kin: Dry skin d enies. I tching d enies. D enies?Mole(s), changes in moles, new moles or any lesions of concern. D enies P hotosensitivity. R danish d enies. N eurologic: Dizziness d enies. F ainting d enies. H eadache?denies. * Medical History: * Surgical History: * Hospitalization/Major Diagno stic Procedure: * Family History: F ather: 85 yrs. M other: 90 yrs. 1 brother(s) , 1 sister(s) . 1 son(s) , 2 daughter(s) . . Mother- Heart Father- Bowel obstruction, Denies mental health/substance abuse family history, Denies mental health/substance abuse family history, Denies mental health/substance abuse family history, Denies mental health/substance abuse family history. * Social History: T obacco Use: T obacco Use/Smoking P atient is a f ormer smoker, H ow long has it been since you last smoked? > 10 years, A dditional Findings: Tobacco Non-User F ormer smoker, currently using no form of tobacco. D rugs/Alcohol: A lcohol Screen D id you have a drink containing alcohol in the past year? Y es, H ow often did you have a drink containing alcohol in the past year? 2 to 4 times a month (2 points), H ow many drinks did you have on a typical day when you were drinking in the past year? 1 or 2 drinks (0 point), H ow often did you have 6 or more drinks on one occasion in the past year? N ever (0 point), P oints 2 , I nterpretation N egative. M iscellaneous: C affeine: no. Children: yes. Exercise: yes, walks 15 minutes QD. Housing: owning. Living with: spouse, son. Marital status: . Occupation: retired. Pets: none. Travel outside of the [place]: no. * Medications: T akingVitamin D (Cholecalciferol) 25 MCG (1000 UT) Capsule 1 capsule Orally Once a day Atorvastatin Calcium 20 MG Tablet TAKE 1 TABLET BY MOUTH EVERY DAY FOR 90 DAYS Taking Vitamin D (Cholecalciferol) 25 MCG (1000 UT) Capsule 1 capsule Orally Once a day Taking Atorvastatin Calcium 20 MG Tablet TAKE 1 TABLET BY MOUTH EVERY DAY FOR 90 DAYS Not-Taking/PRNOmeprazole 20 MG Capsule Delayed Release 1 capsule 30 minutes before morning meal Orally Once a day Nystatin 545756 UNIT/GM Cream 1 application to affected area Externally Twice a day Medication List reviewed and reconciled with the patientNot-Taking/PRN Omeprazole 20 MG Capsule Delayed Release 1 capsule 30 minutes before morning meal Orally Once a day Not-Taking/PRN Nystatin 842643 UNIT/GM Cream 1 application to affected area Externally Twice a day Medication List reviewed and reconciled with the patient * Allergies: N .K.D.A.yes[Allergies Verified] Objective: * Vitals: H t: 61.5, Wt: 180, BMI:33.46, BP:122/76, Wt-k.65. weight is up 5 pounds since 11-20-23. * P ast Orders: L ab:Complete Blood Count Auto Diff (Order Date - 04/26/2024) (Collection Date & Time - 04/26/2024 07:00 AM) Value Reference Range White Blood Count 5.2 4.8-10.8 - X10*3/uL Red Blood Count 4.63 4.20-5.50 - X10*6/uL Hemoglobin 13.6 12.0-16.0 - g/dl Hematocrit 42.3 37.0-47.0 - % Mean Corpuscular Volume 91.4 80.0-98.0 - fL Mean Corpuscular Hemoglobin 29.4 27.0-33.0 - pg Mean Corpuscular HGB Conc 32.2 31.0-35.0 - g/ dl Red Cell Distribution Width 13.5 11.0-16.0 - % Platelet Count 314 160-400 - X10*3/uL Mean Platelet Volume 9.5 9.4-12.3 - fL Neutrophils Percent Auto 62.9 45-73 - % Imm Gran Pct Auto 0.2 0.0-0.4 - % Lymphocytes Percent Auto 25.7 20-40 - % Monocytes Percent Auto 7.7 2-11 - % Eosinophils Percent Auto 2.9 0-4 - % Basophils Percent Auto 0.6 0-2 - % NRBC Pct Auto 0.0 0.0-0.2 - /100WBC Neutrophils Absolute Auto 3.3 2.0-8.3 - x10* 3/uL Imm Gran Abs Auto 0.01 0.00-0.03 - X10*3/uL Lymphocytes Absolute Auto 1.3 1.2-4.9 - X10* 3/uL Monocytes Absolute Auto 0.4 0.1-1.2 - X10*3/ uL Eosinophils Absolute Auto 0.2 0.0-0.4 - X10* 3/uL Basophils Absolute Auto 0.0 0.0-0.2 - X10*3/ uL NRBC Abs Auto 0.000 0.0-0.012 - X10*3/uL L ab:Comprehensive [place]. Panel Fast (Order Date - 04/26/2024) (Collection Date & Time - 04/26/2024 07:00 AM) Value Reference Range Sodium 144 135-145 - mmol/L Bilirubin Total 0.7 0.0-1.0 - mg/dL Aspartate Amino Transferase 26 5-31 - U/L Alanine Aminotransferase 17 0-31 - U/L Total Protein 7.4 6.5-8.0 - g/dL Albumin Level 4.0 3.5-5.0 - g/dL Alkaline Phosphatase 75 39-117 - U/L Potassium 3.8 3.3-5.1 - mmol/L Chloride 107 96-108 - mmol/L Carbon Dioxide 29 22-29 - mmol/L Anion Gap 12 12-20 - Blood Urea Nitrogen 12 9-16 - mg/dL Creatinine 0.80 0.5-1.4 - mg/dL Estimated Glomerular Filt Rate > 60 - Glucose Fasting 107 H 60-99 - mg/dL Calcium 9.0 8.4-10.2 - mg/dL L ab:Lipid Panel (Order Date - 04/26/2024) (Collection Date & Time - 04/26/2024 07:00 AM) Value Reference Range Triglycerides 95 <150 - mg/dL Cholesterol 167 <200 - mg/dL LDL Cholesterol Calculated 77 <100 - mg/dL HDL Cholesterol 71 >40 - mg/dL L ab:Vitamin D 25-OH Total (Order Date - 04/26/2024) (Collection Date & Time - 04/26/2024 07:00 AM) Value Reference Range Vitamin D 25-OH Total 48.1 >30 - ng/mL L ab:UA ClnCatch+Micro w/rflx Cult (Order Date - 04/26/2024) (Collection Date & Time - 04/26/2024 07:00 AM) Value Reference Range Color Urine Yellow - Appearance Urine Clear - PH 5.5 5.0-9.0 - Glucose Urine UA Negative Negative - mg/dL Urine Blood Small (1+) A Negative - Specific Ballinger - Urine 1.015 1.005-1.025 - Urine Protein Negative Neg-Trace - mg/dL Urine Ketones Negative Negative - mg/dL Nitrite Urine Negative Negative - Leukocyte Esterase Urine Small (1+) A Negative - RBC Urine 0-2 0-2 - /HPF WBC Urine 6-10 A 0-5 - /HPF Squamous Epithelial Cell Urine 3-5 0-2 - /HP F Bacteria Urine None Seen None Seen - Hyaline Casts Urine 0-2 0-2 - /LPF * Examination: G eneral Examination: GENERAL APPEARANCE: w ell developed, well nourished, in no acute distress. HEAD: n ormocephalic, atraumatic. EYES: p upils equal, round, reactive to light and accommodation, sclera non-icteric. EARS: n ormal. ORAL CAVITY: m ucosa moist. THROAT: c lear. NECK/THYROID: n lauren supple, full range of motion, no cervical lymphadenopathy, no bruits. SKIN: w arm and dry, no suspicious lesions, abnormal rt side of face an actinic keratoiss. HEART: r egular rate and rhythm, S1, S2 normal, no murmurs.? LUNGS: c lear to auscultation bilaterally. BREASTS: N o mass, no lump. ABDOMEN: s oft, nontender, nondistended, bowel sounds present, normal, no organomegaly , no masses palpable. RECTAL EXAM: d eclined. FEMALE GENITOURINARY: d one by international tax manager. EXTREMITIES: n o clubbing, cyanosis, or edema. NEUROLOGIC: n onfocal, motor strength normal upper and lower extremities, sensory exam intact. Assessment: * Assessment: 1. H igh cholesterol - E78.00 (Primary) 2 . V itamin D deficiency - E55.9? 3. E ncounter for screening for malignant neoplasm of colon - Z12.11 ?4. E ncounter for screening for malignant neoplasm of rectum - Z12.12 5 . Actinic keratoses - L57.0 6 . D epression screening - Z13.31 ? Plan: * Treatment: 2. V itamin D deficiency Continue Vitamin D (Cholecalciferol) Capsule, 25 MCG (1000 UT), 1 capsule, Orally, Once a day. Notes: stable, will continue current regiment 3. E ncounter for screening for malignant neoplasm of colon L AB: [facility] Notes: THE ORDER HAS BEEN FAXED TO [facility] 4. E ncounter for screening for malignant neoplasm of rectum L AB: [facility] 5. A ctinic keratoses Notes: refer to principal military analyst/ ALL INFO GIVEN FOR [facility] 6. D epression screening Notes: negative screen * Procedure Codes: * Preventive Medicine: Counseling: C are goal follow-up plan: C ounseling for abnormal BMI provided?Yes, A luzma Normal BMI Follow-up G tsering encouragement to exercise. * Follow Up: 6 Months * * Sign off status: Completed true * Provider: Khadra Diane MD Date: 0 05/04/2024 Generated for Yusra preston/Jamison/eTransmitting on: 0 11/15/2024 02:12 PM EDT History and Physical Notes * HPI (History of Present Illness) Category Sub-Category Detail Notes Category Not es Depression Screening PHQ-9 Little inte rest or pleasure in doing things: Not at all Feeling down, depressed, or hopeless: No t at all Trouble falling or staying asleep, or sl eeping too much: Not at all Feeling tired or having little energy: N ot at all Poor appetite or overeating: Not at all Feeling bad about yourself o r that you are a failure, or have let yourself or your family down: Not at all Trouble concentrating on thi ngs, such as reading the newspaper or watching television: Not at all Moving or speaking so slowly that other people could have noticed; or the opposite, being so fidgety or restless that you have been moving around a lot more than usual: Not at all Thoughts that you would be b jacqueline off or of hurting yourself in some way: Not at all Total Score: 0 Interpretation and Intervention Depression Alex rowe Findings: Negative Follow-Up for Depression: : review of PH Q-9 found negative result, no follow-up needed SDOH Questions SDOH Questions In the past year have you been worried about losing housing?: No In the past year have you or any family members you live with been unable to get any of the following when it was really needed? Check all that apply:: None Fall Risk History Have you had any falls with injury i n the past year?: No Have you had two or more falls in the st year?: No Communication Needs Communication Needs Does the patient have a hearing impairment: No Does the patient have a vision impairmen t?: Yes If yes, what is the vision impairment?: Glasses Does the patient have a cognition impair ment?: No Examination Category Sub-Category Detail Notes Category Not es General Examination GENERAL APPEARANCE: well dev eloped, well nourished, in no acute distress HEAD: normocephalic, atrau matic EYES: pupils equal, round, reactive to light and accommodation, sclera non-icteric EARS: normal THROAT: clear NECK/THYROID: neck supple, full ra nge of motion, no cervical lymphadenopathy, no bruits HEART: regular rate and rhy thm, S1, S2 normal, no murmurs LUNGS: clear to auscultatio n bilaterally ABDOMEN: soft, nontender, non distended, bowel sounds present, normal, no organomegaly , no masses palpable NEUROLOGIC: nonfocal, motor stre ngth normal upper and lower extremities, sensory exam intact SKIN: warm and dry, no wing picious lesions, abnormal rt side of face an actinic keratoiss EXTREMITIES: no clubbing, cyanosi s, or edema BREASTS: No mass, no lump RECTAL EXAM: declined FEMALE GENITOURINARY: done by international tax manager ORAL CAVITY: mucosa moist
--- OUTSIDE RECORDS SUMMARY | 2024-11-15 03:15 | XMS_ITS ---
Author Organization Adair Diane MD Address [address] [place], [place] [id number] Care Team Providers Care Molybdenum Steamer Operator Name Role Phone Adair Diane Primary Care Provider [phone] Results Component Value Reference Range Notes Liver Panel Reviewed date:11/15/2024 12:30:22 PM Interpretation: Performing Lab:[facility], [address] [place] [id number] Notes/Report: Bilirubin Total 0.7 0.0-1.0 mg/dL Bilirubin Direct 0.2 0.0-0.5 mg/dL Aspartate Amino Transferase 54 5-31 U/L Alanine Aminotransferase 61 0-31 U/L Total Protein 6.9 6.5-8.0 g/dL Albumin Level 4.3 3.5-5.0 g/dL Alkaline Phosphatase 85 39-117 U/L Lipid Panel with Reflex Reviewed date:11/15/2024 12:30:09 PM Interpretation: Performing Lab:[facility], [address] [place] [id number] Notes/Report: Triglycerides 142 <150 mg/dL Desirable Triglyceride: less than 150 mg/dL Borderline High Triglyceride 150-199 mg/dL High Triglyceride: 200-499 mg/dL Very High Triglyceride: greater than or equal to 5OO mg/dL Cholesterol 170 <200 mg/dL Desirable Cholesterol: less than 200 mg/dL Borderline High Cholesterol: 200-239 mg/dL High Cholesterol: greater than 239 mg/dL LDL Cholesterol Calculated 80 <100 mg/dL Desirable LDL: less than 100 mg/dL Near Optimal/Above Optimal LDL: 110-129 mg/dL Borderline High LDL: 130-159 mg/dL High LDL: 160-189 mg/dL Very High LDL: greater than or equal to 190 mg/dL HDL Cholesterol 62 >40 mg/dL Desirable HDL: greater than 40 mg/dL Note: This HDL assay may give artificially low results in patients with liver disease. REASON FOR VISIT FASTING LIPIDS, LIVER PANEL Encounters Encounter Location Date Provider Diagnosis Adair Diane MD [address] [place] [id number] 11/15/2024 Adair Diane Hypercholesteremia E 78.00 Assessments Encounter Date Diagnosis (ICD Code) Assessment Notes Treatment Notes Treatment Clinical Notes Section Notes 11/15/2024 Hypercholesteremia (ICD-10 - E78.00) Plan Of Treatment Next Appt Details Provider Name:Adair espinal, 11/22/2024 11:15:00 AM, [address] [place] [address], [address], [phone], Provider Name:Adair espinal, 05/02/2025 07:00:00 AM, [address] [place] [address], [address], [phone], Provider Name:Adair espinal, 05/09/2025 10:00:00 AM, [address] [place] [address], [address], [phone], Progress Notes * SHADIA SEGURAEDOB: 2 (74 yo F)Acc No.[id number]:11/15/2024 Progress Note Patient: ERIKA HEATH Provider: Khadra Diane MD :1950 A ge:74 Y S ex:Female Date:11/15/2024 Address:[address] [place], [place] [id number] Subjective: * Chief Complaints: * 1 . FASTING LIPIDS, LIVER PANEL. * Medical History: Objective: * Vitals: Assessment: * Assessment: 1. H ypercholesteremia - E78.00 (Primary) Plan: * Treatment: * Procedure Codes: 3 6415 VENIPUNCT, ROUTINE* * * The named appointment provid er may or may not be the originator of this progress note, and it is not deemed complete until electronically signed by the appointment provider. Sign off status: Pending * Provider: Khadra Diane MD Date: 11/15/2024 Generated for Yusra preston/Jamison/Sahilitting on: 11/15/2024 02:12 PM EDT
[2024-11-15 11:58] LABS: Alanine Aminotransferase 61 U/L (0-31); Albumin Level 4.3 g/dL (3.5-5.0); Alkaline Phosphatase 85 U/L (39-117); Aspartate Amino Transferase 54 U/L (5-31); Cholesterol 170 mg/dL (<200); HDL Cholesterol 62 mg/dL (>40); Total Protein 6.9 g/dL (6.5-8.0); Triglycerides 142 mg/dL (<150)
[2024-11-15 12:24] LABS: Reflex LDLD? No
--- OUTSIDE RECORDS SUMMARY | 2024-11-15 14:12 | XMS_ITS | Encounter Summary ---
Author Organization [facility] Address [address] [place] [address] Phone Care Team Providers Care Spray Painter Helper Name Role Phone Irma Godinez MD Unavailable [phone] Joaquin Rose MD Unavailable [phone] Guillermina Adams PA-C Unavailable [phone] Juliet Lowe [facility] Unavailable [email or web address] Adair Diane MD Primary Care Provider Encounter Details Date Type Department Care Team (Late st Contact Info) Description 03/19/2019 Ancillary Orders [address] [id number] Paulo sEpinosa PA-C [address] [place] [address] Orthopedics & Sports Medicine, [place] [address] [email or web address] Left ankle pain, unspecified chronicity Social [...] chronicity documented in this encounter Care Teams Spray Painter Helper Relationship Specialty Start Date End Date Adair Diane MD [address] [place] [address] [address] [place] [address] PCP - General Internal Medicine 09/22/18 Irma Godinez MD [address] [place] [address] [address] [place] [address] [email or web address] Historical LMR Provider 12/11/16 03/03/21 Joaquin Rose MD [address] [place] [address] [address] [place] [address] Historical LMR Provider 12/11/16 2 Guillermina Adams PA-C [address] [place] [address] Orthopedics & Sports Medicine, [place] [address] Historical LMR Provider 12/11/16 03/03/21 Juliet Lowe RDCS Historical LMR Provider 12/11/16 03/03/21 documented as of this encounter Additional Source Comments The information contained in this document represents components of the legal health record. It is not the complete legal health record.[facility]
--- OUTSIDE RECORDS SUMMARY | 2024-11-15 14:12 | XMS_ITS | Patient Health Record ---
Author Organization Adair Diane MD Address [address] [place], [place] [address] Care Team Providers Care Safety Deposit Supervisor Name Role Phone Adair Diane Primary Care Provider Allergies No Known Allergies Results Component Value Reference Range Notes Complete Blood Count Auto Di ff Reviewed date:04/26/2024 12:32:24 PM Interpretation: Performing Lab:[facility], [address] [place] [phone] Notes/Report: White Blood Count 5.2 4.8-10.8 X10*3/uL [...] NRBC Abs Auto 0.000 0.0-0.012 X10*3/uL Comprehensive [place]. Panel Fa st Reviewed date:04/26/2024 12:32:08 PM Interpretation: Performing Lab:[facility], [address] [place] [phone] Notes/Report: Sodium 144 135-145 mmol/L Potassium 3.8 [...] Panel Reviewed date:04/26/2024 12:32:32 PM Interpretation: Performing Lab:[facility], [address] [place] [phone] Notes/Report: Triglycerides 95 <150 mg/dL Desirable Triglyceride: [...] Total Reviewed date:04/26/2024 12:32:47 PM Interpretation: Performing Lab:[facility], [address] [place] [phone] Notes/Report: Vitamin D 25-OH Total 48.1 >30 [...] t Reviewed date:04/26/2024 04:12:41 PM Interpretation: Performing Lab:[facility], [address] [place] [phone] Notes/Report: [id number] Urine, Clean Catch Color Urine Yellow Appearance Urine Clear PH 5.5 5.0-9.0 Glucose Urine UA Negative Negative mg/dL Urine Blood Small (1+) Negative Specific Broadbent - Urine 1.015 1.005-1.025 Urine Protein Negative Neg-Trace mg/dL Urine Ketones Negative Negative mg/dL Nitrite Urine Negative Negative Leukocyte Esterase Urine Small (1+) Negative RBC Urine 0-2 0-2 /HPF WBC Urine 6-10 0-5 /HPF Squamous Epithelial Cell Urine 3-5 0-2 /HPF Bacteria Urine None Seen None Seen Hyaline Casts Urine 0-2 0-2 /LPF Liver Panel Reviewed date:11/15/2024 12:30:22 PM Interpretation: Performing Lab:[facility], [address] [place] [phone] Notes/Report: Bilirubin Total 0.7 0.0-1.0 mg/dL Bilirubin Direct 0.2 0.0-0.5 mg/dL Aspartate Amino Transferase 54 5-31 U/L Alanine Aminotransferase 61 0-31 U/L Total Protein 6.9 6.5-8.0 g/dL Albumin Level 4.3 3.5-5.0 g/dL Alkaline Phosphatase 85 39-117 U/L Lipid Panel with Reflex Reviewed date:11/15/2024 12:30:09 PM Interpretation: Performing Lab:[facility], [address] [place] [phone] Notes/Report: Triglycerides 142 <150 mg/dL Desirable Triglyceride: [...] low results in patients with liver disease. MM tomosynthesis screening B I Reviewed date:01/30/2024 12:30:32 PM Interpretation: Performing Lab: Notes/Report: [address] [place] [address] Mammography Report Signed Patient: Erika Barrientos MR#: [id number] : 1950 Acct:[id number] Age/Sex: 73 / F ADM Date: 01/26/24 Loc: HO.MAMMO Attending Dr: Adair Diane MD Ordering Physician: Adair Diane MD Results: 2Be nign Findings Date of Service: 01/26/24 Follow Up: 1 Year From Orig inal Mammogram Procedure(s): MM tomosynthesis screening BI Accession Number(s): [id number] cc: Adair Diane MD EXAMINATION: MM SCREENING [...] Roth DO in OV> 01/30/24 1048 DD/ TD/TT: 01/26/24 0859 Sheet Pile Driver Operator: [address] [place] [address] Mammography Report Signed Patient: Bill Barrientos MR#: [id number] : 1950 Acct:[id number] Age/Sex: 73 / F ADM Date: 01/26/24 Loc: HO.MAMMO Attending Dr: Adair Diane MD Ordering Physician: Adair Diane MD Results: 2Be nign Findings Date of Service: 04/19 Follow Up: 1 Year From Orig inal Mammogram Procedure(s): MM tomosynthesis screening BI Accession Number(s): [id number] cc: Adair Diane MD EXAMINATION: MM SCREENING DIGITAL BREAST TOMOSYNTHESIS, BILATERAL CLINICAL INFORMATION: Screening. Asymptomatic. COMPARISON: Mammography: Compari son is made with available priors TECHNIQUE: Digital breast mammo graphy with tomosynthesis is performed in both the craniocaudal and mediolateral oblique views along with computer-aided detection (CAD). FINDINGS: There are scattered areas of fibroglandular density (ACR BI-RADS breast composition Category b). Left marker clip. There are no signifi cant masses, abnormal calcifications, or other abnormalities. M M/MM tomosynthesis screening BI IMPRESSION: No mammographic evid ence of malignancy. ASSESSMENT: BI-RADS BI-RADS 2 - Benign Findings RECOMMENDATION: Routine annual mammo graphy screening. 1 year F/U This examination nish uld not preclude the clinical evaluation of a suspicious palpable abnormality. This patient's infor mation was entered into a reminder system with a target due date for their next mammogram. Electronically mikey d by: Manuela Roth DO 01/30/2024 10:48 AM [facility] Dictated By: Manuela Roth DO Signed By: <Electron ically signed by Manuela Roth DO in OV> 01/30/24 1048 DD/ 0840 TD/TT: 01/26/24 0859 Sheet Pile Driver Operator: Urine Culture Reviewed date:04/27/2024 01:49:56 PM Interpretation: Performing Lab:[facility], [address] [place] [phone] Notes/Report: Urine Culture Report Result Urine Culture 10,000 to 50,000 cfu/ml Urine Culture Mixed bacterial alba a characteristic of Urine Culture urogenital contamination. Pathology Reviewed date:10/19/2024 04:43:40 PM Interpretation: Performing Lab:[facility], [address] [place] [address], [place] [address] Notes/Report: ------ Name: Erika Barrientos Age/Sex: 73/F : 1950 Unit#: [id number] Attend Dr: Crystal Mosqueda [facility] Re10/18/24 Status : [facility] Disch: ------ SPEC : [id number] RECD : 10/19/24 STATUS: DAVE IGLESIAS NUM: [id number] ESEQUIEL: 10/18/24-1733 [facility] DR: Crystal Mosqueda [facility]- ENTERED: 10/19/24 SP TYPE: Cytology OT DR: Adair Diane MD ORDERED: Cyto-enhanced Diagnosis Urine: Negative for high-grade urothelial carcinoma. See comment. COMMENT: Cellular sp ecimen consisting of single urothelial cells, squamous cells, rare red blood cells and occasional acute inflammatory cells. Clinical History Other microscopic hematuria Material Received Urine Gross Description Received is 10 cc of clear yellow fluid from which a ThinPrep slide is prepared. IHC S/NG Disclaimer NOTE: Unless otherwi se stated, all tissue is formalin-fixed and paraffin-embedded. Some or all of the immunohistochemical tests reported herein may have been developed and their performance characteristics determined by [facility]. They have not been cleared or appr kira by the U.S. Food and Drug Administration (FDA). However, the FDA has determined that such clearance or approval is not necessary. This laboratory is certified under the Clinical Laboratory Improvement Amendments of 1988 (CLIA) as qualified to perform high comp lexity clinical laboratory testing. Copies To: Adair Diane MD [facility] [address] [place] [address] [address] [place], [place] [phone] [facility] [address] [place], [place] [address]Lex [address] [place] [address] [email or web address] CONTINUED ON NEXT PAGE ------ Name: Erika Barrientos Age/Sex: 73/F : 1950 Unit#: [id number] Attend Dr: Crystal Mosqueda [facility] Re10/18/24 Status : DEP [facility]F [facility] Disch: ------ SPEC : [id number] RECD : 10/19/24 STATUS: DAVE IGLESIAS NUM: [id number] ESEQUIEL: 10/18/24-1732 [facility] DR: Crystal Mosqueda [facility] ENTERED: 10/19/24- 48 SP TYPE: Cytology OTHR DR: Adair Diane MD ORDERED: Cyto-enhanced ------ Signed (signature on file) Pillo Ernst MD 10/19/24 1347 ------ END OF REPORT Glenn Nair Reviewed date:11/15/2024 12:29:37 PM Interpretation: Performing Lab:[facility], [address] [place] [phone] Notes/Report: Glenn Nair See Note Specimen held untested for 24 hours; Call to request Chemistry testing. Reason For Referral No Information Medications Medication [...] Orally Once a day 04/26/2021 Active Nystatin 377809 UNIT/GM 1 application to affected area Externally Twice a day for 14 days 08/14/2018 Not-Taking Immunizations Vaccine Route Administration Date Status Comme nts Fluarix Quadrivalent IM Intramuscular 11/28/2016 Administe red Fluarix Quadrivalent IM Intramuscular 11/03/2017 Administe red Fluarix Quadrivalent IM Intramuscular 11/02/2018 Administe kris Prevnar 13 IM Intramuscular 10/14/2019 Administered TDaP IM Intramuscular 09/30/2019 Administered Done tommy [address]RI[address] Influenza High Dose IM Intramuscular 10/29/2019 [...] Problem Status W/U Status Risk Notes Problem 22270049 Age-related osteoporosis without current pathological fracture (M81.0) Active confirmed Problem 50414767 Vitamin D defici ency (E55.9) Active confirmed Problem 029805139 Other specified menopausal and perimenopausal disorders (N95.8) Active confirmed Problem 482942029 Abnormal mammogr am of left breast (R92.8) Active confirmed Problem 060270791 Abnormal mammogr am (R92.8) Active confirmed Problem Fibrocystic breast changes (45327118) Fibrocystic breast, left (N60.12) Active confirmed Problem 68156621 Hypercholesterem ia (E78.00) Active confirmed Problem 97513792 High cholesterol (E78.00) Active confirmed Problem 687132456 Osteopenia deter mined by x-ray (M85.80) Active confirmed Problem 79543317 De Quervain's di sease (tenosynovitis) (M65.4) Active confirmed Vital Signs Blood pressure diastolic 76 mm Hg 05/04/2024 sravna ght is up 5 pounds since 11-20-23 Height 61.5 in 05/04/2024 weight is up 5 pounds since 11-20-23 Blood pressure systolic 122 mm Hg 05/04/2024 weig ht is up 5 pounds since 11-20-23 Weight 180 lbs 05/04/2024 weight is up 5 pounds since 11-20-23 BMI 33.46 kg/m2 05/04/2024 weight is up 5 pounds since 11-20-23 Encounters Encounter Location Date Provider Diagnosis Adair Diane MD [address] [place] [id number] 04/26/2024 Adair Diane High cholesterol E78 .00 and Vitamin D deficiency E55.9 Adair Diane MD [address] [place] [id number] 11/15/2024 Adair Diane Hypercholesteremia E 78.00 [address] MD [address] [place] [id number] 11/20/2023 Adair Diane Hypercholesteremia E 78.00 Adair Diane MD [address] [place] [id number] 05/04/2024 Adair Diane High cholesterol E78 .00 ; Vitamin D deficiency E55.9 ; Encounter for screening for malignant neoplasm of colon Z12.11 ; Encounter for screening for malignant neoplasm of rectum Z12.12 ; Actinic keratoses L57.0 and Depression screening Z13.31 Assessments Encounter Date Diagnosis (ICD Code) Assessment Notes Treatment Notes Treatment Clinical Notes Section Notes 04/26/2024 High cholesterol (ICD-10 - E78.00) 11/15/2024 Hypercholesteremia (ICD-10 - E78.00) 11/20/2023 Hypercholesteremia (ICD-10 - E78.00) continue on present meds. doing great, is at goal 05/04/2024 High cholesterol (ICD-10 - E78.00) stable, will continue current regiment, pending labs 05/04/2024 Vitamin D deficiency (ICD-10 - E55.9) stable, will continue current regiment 04/26/2024 Vitamin D deficiency (ICD-10 - E55.9) 05/04/2024 Encounter for screening for malignant neoplasm of colon (ICD-10 - Z12.11) THE ORDER HAS BEEN FAXED TO [facility] 05/04/2024 Encounter for screening for malignant neoplasm of rectum (ICD-10 - Z12.12) 05/04/2024 Actinic keratoses (ICD-10 - L57.0) refer to building construction ironworker / ALL INFO GIVEN FOR [facility] 05/04/2024 Depression screening (ICD-10 - Z13.31) negative screen Plan Of Treatment Pending Test Test Name Order Date Electrocardiogram (EKG) 07/18/2017 Electrocardiogram (EKG) 08/14/2018 BONE DENSITY DEXA 04/17/2020 COLOGUARD 05/04/2024 Liver Panel 05/04/2024 Lipid Panel 05/04/2024 Next Appt Details Provider Name:Adair Adams ier, 11/22/2024 11:15:00 AM, [address] [place] [address], [address], [id number], Provider Name:Adair Adams ier, 05/02/2025 07:00:00 AM, [address] [place] [address], [address], [id number], Provider Name:Adair Adams ier, 05/09/2025 10:00:00 AM, [address] [place] [address], [address], [phone], Insurance Providers Payer Name Payer Address Payer Phone Subscriber Number Group Number Insured Name Patient Relationship to Insured Coverage Start Date Coverage End Date MEDICARE NHIC [place] [address] [place] [address] [id number] ERIKA BARRIENTOS Self - patient is the insured [facility] [address] [facility] [address] [place] [phone] [id number] ERIKA BARRIENTOS Self - patient is the insured Medical (General) History Medical History History ICD Code history of bladder polyp man y years ago. by dr rachid valiente. negative cysto 2017 refuses colonoscopy 2024
--- OUTSIDE RECORDS SUMMARY | 2024-11-15 14:12 | XMS_ITS | Encounter Summary ---
Author Organization [facility] Address [address] [place] [address] Phone Care Team Providers Care Dray Driver Name Role Phone Irma Godinez MD Unavailable Joaquin Rose MD Unavailable [phone] Guillermina Adams PA-C Unavailable Juliet Lowe [facility] Unavailable [email or web address] Adair Diane MD Primary Care Provider Encounter Details Date Type Department Care Team (Late st Contact Info) Description 03/19/2019 Ancillary Orders [facility] Orth[facility]ics & Sports Medicine [address] [place] [address] Paulo Espinosa PA-C [address] [place] [address] Orthopedics & Sports Medicine, [place], [place] [phone] [email or web address] Social History Tobacco Use Types Packs/Day Years [...] on file documented as of this encounter Visit Diagnoses Not on filedocumented in this encounter Care Teams Dray Driver Relationship Specialty Start Date End Date Adair Diane MD [address] [place] [address] [place] [address] PCP - General Internal Medicine 09/22/18 Irma Godinez MD [address] [place] [address], [address] [place] [address] [email or web address] Historical LMR Provider 12/11/16 03/03/21 Joaquin Rose MD [address] [place] [address] [place] [address] Historical LMR Provider 12/11/16 2 Guillermina Adams PA-C [address] [place] [address] Orthopedics & Sports Medicine, [place], [place] [phone] [email or web address] Historical LMR Provider 12/11/16 03/03/21 Juliet Lowe RDCS [email or web address] Historical LMR Provider 12/11/16 03/03/21 documented as of this encounter Additional Source Comments The information contained in this document represents components of the legal health record. It is not the complete legal health record.[facility]
--- OUTSIDE RECORDS SUMMARY | 2024-11-15 14:13 | XMS_ITS | Patient Health Record ---
Author Organization [facility] Address [address] [place] [address] Care Team Providers Care Assistant Facility Manager Name Role Phone Rigo Guevara Unavailable [phone] Reason For Referral No Information Plan Of Treatment No Information
== END 2024-11-15 11:33 | disposition home or self-care (01) ==
LOC: HO.LNP 11:32
PROVIDERS: Visit Provider Internal Medicine
DX: E78.00 Pure hypercholesterolemia, unspecified (principal)
CPT/HCPCS: 80061; 80076

== ENCOUNTER 2025-01-24 10:39 | Outpatient (REF) | payer MEDICARE, OTHER, SELFPAY ==
[2025-01-24 12:19] LABS: Alanine Aminotransferase 15 U/L (0-31); Albumin Level 4.2 g/dL (3.5-5.0); Alkaline Phosphatase 77 U/L (39-117); Aspartate Amino Transferase 23 U/L (5-31); Total Protein 6.8 g/dL (6.5-8.0)
--- OUTSIDE RECORDS SUMMARY | 2025-01-24 13:35 | XMS_ITS | Encounter Summary ---
Author Organization [facility] Address [address] [place] [address] Phone Care Team Providers Care Molded Parts Inspector Name Role Phone Irma Godinez MD Unavailable Joaquin Rose MD Unavailable Guillermina Adams PA-C Unavailable Juliet Lowe [facility] Unavailable [email or web address] Adair Diane MD Primary Care Provider Encounter Details Date Type Department Care Team (Late st Contact Info) Description 03/19/2019 Ancillary Orders [facility] Orthopedics & Sports Medicine [address] [place] [address] Paulo Espinosa PA-C [address] [place] [address] Orthopedics & Sports Medicine, [place], [place] [phone] [email or web address] Social History Tobacco Use Types Packs/Day Years [...] on filedocumented in this encounter Care Teams Molded Parts Inspector Relationship Specialty Start Date End Date Adair Diane MD [address] [place] [address] [place] [address] PCP - General Internal Medicine 09/22/18 Irma Godinez MD [address] [place] [address], [address] [place] [address] [email or web address] Historical LMR Provider 12/11/16 03/03/21 Joaquin Rose MD [address] [place] [address] [place] [address] Historical LMR Provider 12/11/16 2 Guillermina Adams PA-C [address] [place] [address] Orthopedics & Sports Medicine, [place], [place] [phone] [email or web address] Historical LMR Provider 12/11/16 03/03/21 Juliet Lowe RDCS [email or web address] Historical LMR Provider 12/11/16 03/03/21 documented as of this encounter Additional Source Comments The information contained in this document represents components of the legal health record. It is not the complete legal health record.[facility]
--- OUTSIDE RECORDS SUMMARY | 2025-01-24 13:35 | XMS_ITS | Encounter Summary ---
Author Organization [facility] Address [address] [place] [address] Phone Care Team Providers Care Senior Escrow Officer Name Role Phone Irma Godinez MD Unavailable [phone] Joaquin Rose MD Unavailable [phone] Guillermina Adams PA-C Unavailable [phone] Juliet Lowe [facility] Unavailable [email or web address] Adair Diane MD Primary Care Provider Encounter Details Date Type Department Care Team (Late st Contact Info) Description 03/19/2019 Ancillary Orders [address] [address] Paulo Espinosa PA-C [address] [place] [address] Orthopedics & Sports Medicine, [place] [address] [email or web address] Left ankle pain, unspecified chronicity Social [...] chronicity documented in this encounter Care Teams Senior Escrow Officer Relationship Specialty Start Date End Date Adair Diane MD [address] [place] [address] [address] [place] [address] PCP - General Internal Medicine 09/22/18 Irma Godinez MD [address] [place] [address] [address] [place] [address] [email or web address] Historical LMR Provider 12/11/16 03/03/21 Joaquin Rose MD [address] [place] [address] [address] [place] [address] Historical LMR Provider 12/11/16 2 Guillermina Adams PA-C [address] [place] [address] Orthopedics & Sports Medicine, [place] [address] Historical LMR Provider 12/11/16 03/03/21 Juliet Lowe RDCS Historical LMR Provider 12/11/16 03/03/21 documented as of this encounter Additional Source Comments The information contained in this document represents components of the legal health record. It is not the complete legal health record.[facility]
--- OUTSIDE RECORDS SUMMARY | 2025-01-24 13:35 | XMS_ITS | Clinical Summary ---
Author Organization [facility] Address [address] [id number] Phone Care Team Providers Care Tag Meter Operator Name Role Phone Adair Diane MD Primary Care Provider Allergies No known active allergies Medications No known medications Active Problems No known active problems Social History Tobacco Use Types Packs/Day Years Used Date Smoking Tobacco: Former Cigarettes Q uit: 02/24/2014 Smokeless Tobacco: Never Alcohol Use Standard Drinks/Week Comments Yes 0 (1 standard drink = 0.6 oz pur e alcohol) occ Education Answer Date Recorded Are you interested in more education? Not on bal e 06/21/2022 Are you concerned about learning? Not on file 06/21/2022 No 06/21/2022 No 06/21/2022 Digital Access Answer Date Recorded No 07/22/2022 No 07/22/2022 Reliable internet access at home? Not on file 07/22/2022 Device with a working camera? Not on file Comments Unknown Sex and Gender Information Value Date Recorded Sex Assigned at Not on file Legal Sex Female 9:59 PM EDT Gender Identity Not on file Sexual Orientation Not on file Last Filed Vital Signs Vital Sign Reading Time Taken Comments Blood Pressure 134/82 11/09/2014 9:07 AM EDT Pulse 99 11/09/2014 9:07 AM EDT Temperature - - Respiratory Rate - - Oxygen Saturation - - Inhaled Oxygen Concentration - - Weight 88.9 kg (196 lb) 03/19/2019 10:11 AM EST Height 157.5 cm (5' 2 ) 03/19/2019 10:11 AM EST Body Mass Index 35.85 03/19/2019 10:11 AM EST Plan of Treatment Health Maintenance Due Date Last Done Comments DEPRESSION SCREENING 1963 SMOKING Hx and SMOKELESS TOBACCO SCREENING 11/11/1964 HEPATITIS C SCREENING 11/11/1969 MAMMOGRAM 1991 COLOGUARD 11/11/1996 COLONOSCOPY 11/11/1996 COLORECTAL CANCER SCREENING 11/11/1996 FIT TEST 11/11/1996 FOBT 11/11/1996 SIGMOIDOSCOPY 11/11/1996 VIRTUAL COLONOSCOPY 11/11/1996 ZOSTER VACCINES (1 of 2) 11/11/2001 OSTEOPOROSIS SCREENING INITIAL (ONE-TIME) 11/11/2016 PNEUMOCOCCAL VACCINES (50+ years) (2 of 2 - PCV20 or PCV21) 10/13/2020 10/14/2019 INFLUENZA VACCINE (#1) 2024 0, 11/02/2018, 11/03/2017, Additional history exists COVID-19 VACCINE ( season) 2024 05/23/2020, 04/25/2020 LIPID PANEL 04/04/2025 04/04/2020 RSV VACCINE (1 - 1-dose 75+ series) 11/11/2026 Adult Td,Tdap Booster 09/29/2029 09/30/2019 HEPATITIS A VACCINES Aged Out No long er eligible based on patient's age to complete this topic HIB VACCINES Aged Out No longer eligi ble based on patient's age to complete this topic MENINGOCOCCAL VACCINES (ACWY) Aged Out No longer eligible based on patient's age to complete this topic MENINGOCOCCAL VACCINES (B) Aged Out N o longer eligible based on patient's age to complete this topic Medical Devices Not on file Procedures Procedure Name Priority Date/Time Associated Diagnosis Comments LIPID PANEL Routine 04/04/2020 7:55 AM EST Pure hypercholesterolemia Impaired fasting glucose Avitaminosis D from Last 3 Months or Most Recently Relevant to Health Maintenance Results * (ABNORMAL) Lipid panel (04/04/2020 7:55 AM EST) HDL 52 mg/dL [facility] Comment: Interpretation <40 mg/dL: Low HDL cholesterol (major risk factor for CHD) Greater than or equal to 60 mg/dL: High HDL cholesterol ( negative risk factor for CHD) HDL - cholesterol is affected by a number of factors, e.g. smoking, excerise, hormones, sex and age. CHOLESTEROL 281(H) 0 - 240 mg/dL [facility] TRIGLYCERIDES 245(H) 30 - 160 mg/dL [facility] LDL 180(H) 50 - 129 mg/dL [facility] Comment: LDL levels in terms of risk for coronary heart disease: <100 mg/dL: Optimal 100-129 mg/dL: Near or above optimal 130-159 mg/dL: Borderline high 160-189 mg/dL: High >190 mg/dL: Very High CARDIAC RISK RATIO 5.4(H) 3.3 - 4.4 C [facility] Blood 04/04/2020 7:55 AM EST 04/04/2020 8:01 AM EST us Adair Diane MD LAB BLOOD BKR ORDERABLE S Final Result [facility] [address] [place] [address] from Last 3 Months or Most Recently Relevant to Health Maintenance Insurance [place] PART A & [place] [id number] [facility] MEDICARE SUPPLEMENT MEDICARE PART A & [place] [address] [place] [address] MEDICARE SUPPLEMENT MEDICARE PART A & B [facility] MEDICARE SUPPLEMENT MEDICARE PART A & B MEDICARE SUPPLEMENT MEDICARE PART A & B MEDICARE SUPPLEMENT MEDICARE PART A & B [id number] [place] [address] MEDICARE SUPPLEMENT MEDICARE PART A & B [facility] MEDICARE SUPPLEMENT MEDICARE PART A & B [facility] MEDICARE SUPPLEMENT MEDICARE PART A & B [facility] MEDICARE SUPPLEMENT Care Teams Tag Meter Operator Relationship Specialty Start Date End Date Adair Diane MD [address] [place] [address] [address] [place] [address] PCP - General Internal Medicine 09/22/18 Additional Source Comments The information contained in this document represents components of the legal health record. It is not the complete legal health record.[facility]
== END 2025-01-24 10:40 | disposition home or self-care (01) ==
LOC: HO.LNP 10:39
PROVIDERS: Visit Provider Internal Medicine
DX: Z23 Encounter for immunization (principal)
CPT/HCPCS: 80076

== ENCOUNTER 2025-01-31 08:43 | Outpatient (REF) | payer MEDICARE, OTHER, SELFPAY ==
--- NOTE | ~2025-01-31 | MM_ITS ---
EXAMINATION: MM SCREENING DIGITAL BREAST TOMOSYNTHESIS, BILATERAL CLINICAL INFORMATION: Screening. Asymptomatic. COMPARISON: Mammography: Comparison is made with available priors TECHNIQUE: Digital breast mammography with tomosynthesis is performed in both the craniocaudal and mediolateral oblique views along with computer-aided detection (CAD). FINDINGS: There are scattered areas of fibroglandular density. Left marker clip. There are no significant masses, abnormal calcifications, or other abnormalities. MM/MM tomosynthesis screening BI IMPRESSION: No mammographic evidence of malignancy. ASSESSMENT: BI-RADS Category 2: Benign RECOMMENDATION: Routine annual mammography screening. 1 year F/U This examination should not preclude the clinical evaluation of a suspicious palpable abnormality. This patient's information was entered into a reminder system with a target due date for their next mammogram. Electronically signed by: Manuela Roth DO 02/01/2025 06:53 PM MABLE
== END 2025-01-31 08:44 | disposition home or self-care (01) ==
LOC: HO.MAMMO 08:43
PROVIDERS: PCP Internal Medicine; Visit Provider Internal Medicine
DX: Z12.31 Encounter for screening mammogram for malignant neoplasm of breast (principal)
CPT/HCPCS: 77063; 77067

== ENCOUNTER → 2025-01-31 09:00 | Outpatient (BNV) | payer MEDICARE, OTHER, SELFPAY | PROVIDERS: PCP Internal Medicine; Visit Provider Internal Medicine | DX: Z12.31 Encounter for screening mammogram for malignant neoplasm of breast (principal) | CPT/HCPCS: 77063; 77067 ==